=== PATIENT | male | born 1955 | race Caucasian/White ===

== ENCOUNTER 2017-01-07 15:06 | Inpatient (IN) | payer MEDICARE, BC, OTHER ==
[2017-01-07] MEDS ORDERED: SODIUM CHLORIDE 0.9% 500 ML IV STA (15:46)
[2017-01-07] MEDS ORDERED: SODIUM CHLORIDE 0.9% 1,000 ML IV STA (15:46)
[2017-01-07] MEDS ORDERED: ONDANSETRON 4 MG/2 ML VIAL IVP STA (15:46)
[2017-01-07 16:20] LABS: Basophils # (A) 0.1 k/uL (0-0.2); Basophils % (A) 1 %; Eosinophils # (A) 0.2 k/uL (0-0.7); Eosinophils % (A) 2 %; HCT 38.8 % (39.0-53.0); HDW 2.54; HGB 12.7 gm/dL (13.0-17.5); Luc # (Auto) 0.15; Luc % (Auto) 2; Lymphocytes # (A) 1.4 k/uL (1.0-4.8); Lymphocytes % (A) 18 %; MCHC 32.8 g/dL (31.0-37.0); MCV 103.5 fL (80.0-100.0); Macrocytosis Slight; Mean Platelet Volume 8.5; Monocytes # (A) 0.6 k/uL (0-1.0); Monocytes % (A) 8 %; Neutrophils # (A) 5.3 k/uL (1.3-7.7); Neutrophils % (A) 70 %; RBC 3.75 m/uL (4.30-5.90); WBC 7.7 k/uL (3.8-10.6); WBC (Perox) 8.25
[2017-01-07 16:30] LABS: INR 1.1 (<1.2); Prothrombin Time 11.1 sec (9.0-12.0)
--- NOTE | 2017-01-07 16:30 | XR ---
EXAMINATION TYPE: XR KUB DATE OF EXAM: 01/07/2017 4:24 PM CLINICAL HISTORY: Abdominal pain. TECHNIQUE: Two Upright KUB images of the abdomen are obtained. COMPARISON: None. FINDINGS: Scattered gas is seen in non-distended small bowel loops. Gas and fecal material is seen in non-distended colon and rectum. There is no visceromegaly, pneumoperitoneum, or abnormal calcificati on appreciated. The lung bases are clear and the osseous structures are intact. There is partial visu alization of sternal wires and mediastinal clips. IMPRESSION: Overall nonobstructive bowel gas pattern.
[2017-01-07 16:32] LABS: ALT 64 U/L (21-72); AST 53 U/L (17-59); Alkaline Phosphatase 92 U/L (38-126); Anion Gap 12 mmol/L; Blood Urea Nitrogen 16 mg/dL (9-20); Calcium 9.4 mg/dL (8.4-10.2); Carbon Dioxide 26 mmol/L (22-30); Chloride 100 mmol/L (98-107); Glucose 99 mg/dL (74-99); Non-African American GFR(MDRD) >60 (>60 ml/min/1.73 sqM); Potassium 3.8 mmol/L (3.5-5.1); Sodium 138 mmol/L (137-145); Total Protein 7.5 g/dL (6.3-8.2)
--- NOTE | 2017-01-07 16:33 | ED ---
General Adult HPI - General Chief complaint: Recheck/Abnormal Lab/Rx Stated complaint: Dehydration Time Seen by Provider: 01/07/17 15:40 Source: patient, EMS, RN notes reviewed Mode of arrival: ambulatory Limitations: no limitations - History of Present Illness Initial comments: 61-year-old male presents with chief complaint nausea and vomiting. Patient states he has history of esophageal strictures, is scheduled for EGD with dilatation tomorrow. Patient was seen by his surgeon earlier today. Recommended evaluation in the ER for admission. Patient states he's been unable to keep anything down for greater than 1 week. He vomits with both food and water. He is also had episodes of vomiting in between. Denies significant abdominal pain. Denies fever chills. Denies chest pain or shortness of breath. Patient does have past medical history of multiple procedures on his esophagus in the past. He is HIV positive. - Related Data Home Medications Medication Instructions Recorded Confirmed Aspirin EC [Ecotrin Low Dose] 81 mg PO DAILY 01/07/17 01/07/17 Atenolol [Tenormin] 25 mg PO DAILY 01/07/17 01/07/17 Atorvastatin Calcium [Lipitor] 10 mg PO DAILY 01/07/17 01/07/17 Emtricitab/Rilpiviri/Tenof Ala 1 tab PO DAILY 01/07/17 01/07/17 [Odefsey Tablet] Ibuprofen [Motrin] 800 mg PO Q8H PRN 01/07/17 01/07/17 QUEtiapine [SEROquel] 200 mg PO HS 01/07/17 01/07/17 Ranitidine HCl 300 mg PO DAILY 01/07/17 01/07/17 Allergies Allergy/AdvReac Type Severity Reaction Status Date / Time No Known Allergies Allergy Verified 01/07/17 16:29 Review of Systems ROS Statement: Those systems with pertinent positive or pertinent negative responses have been documented in the HPI. ROS Other: All systems not noted in ROS Statement are negative. Past Medical History Past Medical History: Hypertension Additional Past Medical History / Comment(s): HIV positive History of Any Multi-Drug Resistant Organisms: None Reported Past Surgical History: Cardiac Valve Replacement, Hernia Repair Additional Past Surgical History / Comment(s): 6 esophageal dilations Past Psychological History: Bipolar Smoking Status: Never smoker Past Alcohol Use History: None Reported Past Drug Use History: None Reported General Exam Limitations: no limitations General appearance: alert, in no apparent distress, cachectic Head exam: Present: atraumatic, normocephalic Eye exam: Present: normal appearance, PERRL ENT exam: Present: mucous membranes dry Neck exam: Present: normal inspection. Absent: tenderness, meningismus Respiratory exam: Present: normal lung sounds bilaterally. Absent: respiratory distress Cardiovascular Exam: Present: regular rate, normal rhythm GI/Abdominal exam: Present: soft. Absent: distended, tenderness, guarding, rebound Extremities exam: Present: normal inspection, normal capillary refill. Absent: pedal edema Neurological exam: Present: alert, oriented X3 Psychiatric exam: Present: normal affect, normal mood Skin exam: Present: warm, dry, intact. Absent: cyanosis, diaphoretic Course Vital Signs 01/07/17 15:35 Temperature 97 F L Pulse Rate 71 Respiratory 18 Rate Blood Pressure 106/68 O2 Sat by Pulse 100 Oximetry Medical Decision Making - Medical Decision Making 61-year-old male presents with nausea vomiting, dehydration. Case was discussed with Dr. Escobar, he would like patient admitted for IV hydration. Infectious disease will be placed on consult for history of HIV. Abdominal x-ray shows no obstruction, no intraperitoneal free air. Laboratory studies are unremarkable including normal electrolytes. Urinalysis is pending Diagnosis: Dehydration, nausea vomiting, esophageal stricture. - Lab Data Result diagrams: 01/07/17 16:05 01/07/17 16:05 Lab Results 01/07/17 01/07/17 01/07/17 Range/Units 16:05 16:05 16:05 WBC 7.7 (3.8-10.6) k/uL RBC 3.75 L (4.30-5.90) m/uL Hgb 12.7 L (13.0-17.5) gm/dL Hct 38.8 L (39.0-53.0) % MCV 103.5 H (80.0-100.0) fL MCH 34.0 (25.0-35.0) pg MCHC 32.8 (31.0-37.0) g/dL RDW 14.0 (11.5-15.5) % Plt Count 193 (150-450) k/uL Neutrophils % 70 % Lymphocytes % 18 % Monocytes % 8 % Eosinophils % 2 % Basophils % 1 % Neutrophils # 5.3 (1.3-7.7) k/uL Lymphocytes # 1.4 (1.0-4.8) k/uL Monocytes # 0.6 (0-1.0) k/uL Eosinophils # 0.2 (0-0.7) k/uL Basophils # 0.1 (0-0.2) k/uL Macrocytosis Slight PT 11.1 (9.0-12.0) sec INR 1.1 (<1.2) APTT 24.0 (22.0-30.0) sec Sodium 138 (137-145) mmol/L Potassium 3.8 (3.5-5.1) mmol/L Chloride 100 (98-107) mmol/L Carbon Dioxide 26 (22-30) mmol/L Anion Gap 12 mmol/L BUN 16 (9-20) mg/dL Creatinine 1.05 (0.66-1.25) mg/dL Est GFR (MDRD) Af Amer >60 (>60 ml/min/1.73 sqM) Est GFR (MDRD) Non-Af >60 (>60 ml/min/1.73 sqM) Glucose 99 (74-99) mg/dL Calcium 9.4 (8.4-10.2) mg/dL Total Bilirubin 1.0 (0.2-1.3) mg/dL AST 53 (17-59) U/L ALT 64 (21-72) U/L Alkaline Phosphatase 92 (38-126) U/L Total Protein 7.5 (6.3-8.2) g/dL Albumin 4.6 (3.5-5.0) g/dL Lipase 70 (23-300) U/L Disposition Clinical Impression: Nausea & vomiting, Dehydration, Esophageal stricture Disposition: ADMITTED IP TO THIS [facility] Condition: Stable Referrals: Nonstaff,Physician [Primary Care Provider] - 1-2 days Decision to Admit Reason: Admit from EC Decision Date: 01/07/17 Decision Time: 16:42
[2017-01-07] MEDS ORDERED: ONDANSETRON 4 MG/2 ML VIAL IVP PRN (16:48)
[2017-01-07] MEDS ORDERED: NALOXONE 0.4 MG/ML 1 ML VIAL IV PRN (16:48)
--- NOTE | 2017-01-07 21:10 | HP ---
HISTORY AND PHYSICAL CHIEF COMPLAINTS: Nausea and vomiting. HISTORY OF PRESENT ILLNESS: This 61-year-old gentleman with a past medical history of multiple medical problems, including HIV, hypertension, history of cardiac valve replacement, history of esophageal strictures with 6 dilatations, being followed by a primary physician in the [place] area, was supposed to have dilatation tomorrow by Dr. Escobar; however, the patient is having incessant vomiting, unable to keep anything down. The patient became dehydrated; because of that, patient came to [facility] and was admitted for further evaluation and treatment. There is no history of fever, rigor or chills. No history of headache, loss of consciousness, seizures at this time. PAST MEDICAL HISTORY: 1. History of hypertension. 2. HIV. 3. History of cardiac valve replacement. 4. History of hernia surgery. 5. Esophageal dilatation. MEDICATIONS: 1. Ranitidine 300 mg p.o. daily. 2. Seroquel 200 mg at bedtime. 3. Motrin 800 mg q.8 p.r.n. 4. Odefsey 1 tablet p.o. daily, which the patient is not taking on a regular basis because of difficulty swallowing. 5. Lipitor 10 mg daily. 6. Tenormin 25 mg daily. 7. Ecotrin 81 mg daily. ALLERGIES: NONE. FAMILY HISTORY: No history of any heart disease or strokes in the family. SOCIAL HISTORY: No history of smoking. No history of alcohol intake. REVIEW OF SYSTEMS: ENT: No diminished hearing. No diminished vision. CARDIOVASCULAR SYSTEM: No angina, palpitations. RESPIRATORY SYSTEM: No cough, hemoptysis. GI: As mentioned earlier. : No dysuria or retention. NERVOUS SYSTEM: No numbness, weakness. ALLERGY/IMMUNOLOGY: No asthma, hayfever. MUSCULOSKELETAL: As mentioned earlier. HEMATOLOGY/ONCOLOGY: No history of anemia. ENDOCRINE: No history of diabetes, hypothyroidism. CONSTITUTIONAL: As mentioned earlier. DERMATOLOGY: Negative. RHEUMATOLOGY: Negative. PSYCHIATRY: As mentioned earlier. PHYSICAL EXAMINATION: Patient is alert, oriented x3. Pulse 77, blood pressure 139/66, respiration 18, temperature 98.1, pulse ox 98% on room air. HEENT: Conjunctivae normal. Oral mucosa moist. NECK: No jugular venous distention. No carotid bruit. No lymph node enlargement. CARDIOVASCULAR SYSTEM: S1, S2 muffled. RESPIRATORY SYSTEM: Breath sounds diminished at the bases. No rhonchi. No crackles. ABDOMEN: Soft, nontender. No mass palpable. No guarding. LEGS: No edema. No swelling. NERVOUS SYSTEM: Higher functions as mentioned earlier. Moves all 4 limbs. No focal motor or sensory deficit. LYMPHATICS: No lymph node palpable in neck, axillae or groin. SKIN: No ulcer, rash, bleeding. JOINTS: No active deformity. LABS: WBC 7.6, hemoglobin 12.7. BMP noted. ASSESSMENT: 1. Difficulty in swallowing, dysphagia as well as dehydration. 2. Esophageal stricture. 3. History of esophageal strictures and multiple dilatations. 4. Hypertension. 5. History of HIV positive. 6. History of cardiac valve replacement. 7. Hernia repair. 8. Bipolar. RECOMMENDATIONS AND DISCUSSION: In this 61-year-old gentleman who presented with multiple complex medical issues, we will monitor the patient closely, continue the current medications, continue symptomatic treatment. Otherwise, at this time I recommend IV fluids with potassium supplementation. Consult Dr. Méndez and Dr. Escobar. Otherwise, home medication may continue once the patient is p.o. See orders for further details. Oral medications will be initiated once the patient is able to take p.o. after the dilatation. Prognosis guarded. MMODL / IJN: [id number] /
[2017-01-07] MEDS: QUEtiapine 200 MG TAB PO SCH (21:46)
[2017-01-07] MEDS: D5-0.45% NACL WITH KCL 20MEQ/L 1,000 ML IV SCH (21:47)
[2017-01-07 22:10] LABS: Appearance,Urine Clear (Clear); Bilirubin,Urine Negative (Negative); Glucose,Urine (UA) Negative (Negative); Ketones,Urine 1+ (Negative); Leukocyte Esterase,Urine Negative (Negative); Nitrite,Urine Negative (Negative); PH, Urine 7.5 (5.0-8.0); Protein,Urine Trace (Negative); UA Billing (MACRO vs. MICRO) CHEM; Urobilinogen,Urine <2.0 mg/dL (<2.0)
[2017-01-08] MEDS: D5-0.45% NACL WITH KCL 20MEQ/L 1,000 ML IV SCH ×2 (08:13→18:04)
[2017-01-08] MEDS: [UNRECOGNIZED DRUG - OTHER] PO SCH (08:15)
[2017-01-08] MEDS ORDERED: FAMOTIDINE 20 MG TAB PO SCH (09:00)
[2017-01-08] MEDS: PANTOPRAZOLE 40 MG/10 ML VIAL IV SCH (09:35)
[2017-01-08] MEDS: ATENOLOL 25 MG TAB PO SCH (09:37)
[2017-01-08] MEDS: ATORVASTATIN 10 MG TAB PO SCH (09:37)
[2017-01-08] MEDS: ASPIRIN 81 MG PO SCH (09:37)
[2017-01-08 09:39] VITALS: BMI 19.8
--- NOTE | 2017-01-08 09:42 | P.CONS ---
History of Present Illness - Reason for Consult Consult date: 01/08/17 HIV - History of Present Illness This is a 61-year-old male who has been residing in [place] but recently moved in with his mother in [place]. He is currently established with Dr. Lozoya for HIV treatment diagnosed in 1985 and is on Odefsey. His last CD4 count was 256 approximately 5-6 weeks ago. He gives history of having ongoing problems with esophageal strictures and has undergone multiple procedures for dilation and most recently was done 6 months ago. He states that lasted for about 1 month and then he started having symptoms again. He has lost 24 pounds in the past 6 months. He has had increased stress with recent aortic valve replacement, his partner recently and due to the ongoing esophageal stricture issues and states his CD count has been gradually decreasing over the past 6 months and he has had increased feelings of depression with history of bipolar disorder. He does have a counselor in [place] but no one established in this area. He is also on Seroquel at 200 mg at bedtime and before meals and he feels the dose may need to be increased. He declines need to see a psychiatrist during this hospitalization. He does have a history of heavy drug use but quit in 2011. Patient states he has had nausea and vomiting with food and water and unable to keep anything down for most of the week. He came into [facility] emergency center for evaluation. He was admitted to the hospital for dehydration and a consult placed with Dr. Escobar for EGD and esophageal dilation scheduled for today. Patient does not have Odefsey with him and no one is available to bring it into the hospital. He also gives history of having chronic wounds to his feet and follows with a outboard system operator in [place]. He has had a wound on his left second toe and the plantar surface under the fifth metatarsal that have healed. He currently has a wound to the right great toe. Patient is looking to be established for HIV care in the [facility]. Review of Systems All systems: negative Constitutional: Reports anorexia, Reports malaise, Reports poor appetite, Reports weakness, Reports weight loss, Denies chills, Denies fever Eyes: denies blurred vision, denies pain Ears, nose, mouth and throat: Denies headache, Denies sore throat Cardiovascular: Denies chest pain, Denies shortness of breath Respiratory: Denies cough, Denies cough with sputum, Denies dyspnea, Denies excessive sputum, Denies hemoptysis, Denies home oxygen Gastrointestinal: Reports diarrhea (3 episodes of diarrhea last evening.), Reports nausea, Reports vomiting, Denies abdominal pain Musculoskeletal: Denies myalgias Integumentary: Reports wounds, Denies pruritus, Denies rash Neurological: Denies numbness, Denies weakness Psychiatric: Denies anxiety, Denies depression Endocrine: Denies fatigue, Denies weight change Past Medical History Past Medical History: GERD/Reflux, Hypertension Additional Past Medical History / Comment(s): HIV positive, kaposi's sarcoma, arthritis in hands, cardiac murmur, esophageal strictures, "tardive dyskinesia, past broken rt collar bone. History of Any Multi-Drug Resistant Organisms: None Reported Past Surgical History: Cardiac Valve Replacement, Hernia Repair Additional Past Surgical History / Comment(s): 6 esophageal dilations, aortic valve replacment, hiatal hernia repair Past Anesthesia/Blood Transfusion Reactions: No Reported Reaction Smoking Status: Never smoker Additional Past Alcohol Use History / Comment(s): Patient has history of drug abuse with cocaine, crack, acid, speak, Quaaludes, marijuana and stopped in 2011. He denies any IV drug use. 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 He currently resides with his mother. - Past Family History Mother Family Medical History: No Reported History Father Family Medical History: Myocardial Infarction ([place]) Additional Family Medical History / Comment(s): parkinsons Medications and Allergies Home Medications Medication Instructions Recorded Confirmed Type Aspirin EC [Ecotrin Low Dose] 81 mg PO DAILY 01/07/17 01/07/17 History Atenolol [Tenormin] 25 mg PO DAILY 01/07/17 01/07/17 History Atorvastatin Calcium [Lipitor] 10 mg PO DAILY 01/07/17 01/07/17 History Emtricitab/Rilpiviri/Tenof Ala 1 tab PO DAILY 01/07/17 01/07/17 History [Odefsey Tablet] Ibuprofen [Motrin] 800 mg PO Q8H PRN 01/07/17 01/07/17 History QUEtiapine [SEROquel] 200 mg PO HS 01/07/17 01/07/17 History Ranitidine HCl 300 mg PO DAILY 01/07/17 01/07/17 History Allergies Allergy/AdvReac Type Severity Reaction Status Date / Time No Known Allergies Allergy Verified 01/07/17 16:29 Physical Exam Vitals: Vital Signs Temp Pulse Pulse Resp BP BP Pulse Ox 01/08/17 07:00 98.9 F 77 16 93/54 95 01/08/17 00:00 65 16 01/07/17 23:00 97.0 F L 65 16 121/58 98 01/07/17 17:53 98.1 F 77 18 113/66 98 01/07/17 17:19 97.9 F 01/07/17 17:05 71 18 127/65 98 01/07/17 15:35 97 F L 71 18 106/68 100 Intake and Output 01/07/17 01/08/17 01/08/17 22:59 06:59 14:59 Intake Total 590 800 Output Total 200 Balance 590 600 Intake: Intake, IV Titration 800 Amount Sodium Chloride 0.9% 1, 800 000 ml @ 100 mls/hr IV . Q10H STA Rx#:[id number] Oral 590 Output: Urine 200 Other: Voiding Method Toilet Toilet # Voids 2 1 Weight 62.596 kg Gen: This is a thin 61-year-old male. HEENT: Head is atraumatic, normocephalic. Pupils equal, round. Sclerae is anicteric. NECK: Supple. No JVD. No lymphadenopathy. No thyromegaly. LUNGS: Clear to auscultation. No wheezes or rhonchi. No intercostal retractions. HEART: Regular rate and rhythm. No murmur. ABDOMEN: Soft. Bowel sounds are present. No masses. No tenderness. EXTREMITIES: No pedal edema. No calf tenderness. Dorsalis pedis +2 bilaterally. Small wound to the distal right great toe with surrounding erythema. NEUROLOGICAL: Patient is awake, alert and oriented x3. Cranial nerves 2 through 12 are grossly intact. Results Results: Laboratory Results WBC 7.7 k/uL (3.8-10.6) 01/07/17 16:05 RBC 3.75 m/uL (4.30-5.90) L 01/07/17 16:05 Hgb 12.7 gm/dL (13.0-17.5) L 01/07/17 16:05 Hct 38.8 % (39.0-53.0) L 01/07/17 16:05 MCV 103.5 fL (80.0-100.0) H 01/07/17 16:05 MCH 34.0 pg (25.0-35.0) 01/07/17 16:05 MCHC 32.8 g/dL (31.0-37.0) 01/07/17 16:05 RDW 14.0 % (11.5-15.5) 01/07/17 16:05 Plt Count 193 k/uL (150-450) 01/07/17 16:05 Neutrophils % 70 % 01/07/17 16:05 Lymphocytes % 18 % 01/07/17 16:05 Monocytes % 8 % 01/07/17 16:05 Eosinophils % 2 % 01/07/17 16:05 Basophils % 1 % 01/07/17 16:05 Neutrophils # 5.3 k/uL (1.3-7.7) 01/07/17 16:05 Lymphocytes # 1.4 k/uL (1.0-4.8) 01/07/17 16:05 Monocytes # 0.6 k/uL (0-1.0) 01/07/17 16:05 Eosinophils # 0.2 k/uL (0-0.7) 01/07/17 16:05 Basophils # 0.1 k/uL (0-0.2) 01/07/17 16:05 Macrocytosis Slight 01/07/17 16:05 PT 11.1 sec (9.0-12.0) 01/07/17 16:05 INR 1.1 (<1.2) 01/07/17 16:05 APTT 24.0 sec (22.0-30.0) 01/07/17 16:05 Sodium 138 mmol/L (137-145) 01/07/17 16:05 Potassium 3.8 mmol/L (3.5-5.1) 01/07/17 16:05 Chloride 100 mmol/L (98-107) 01/07/17 16:05 Carbon Dioxide 26 mmol/L (22-30) 01/07/17 16:05 Anion Gap 12 mmol/L 01/07/17 16:05 BUN 16 mg/dL (9-20) 01/07/17 16:05 Creatinine 1.05 mg/dL (0.66-1.25) 01/07/17 16:05 Est GFR (MDRD) Af Amer >60 (>60 ml/min/1.73 sqM) 01/07/17 16:05 Est GFR (MDRD) Non-Af >60 (>60 ml/min/1.73 sqM) 01/07/17 16:05 Glucose 99 mg/dL (74-99) 01/07/17 16:05 Calcium 9.4 mg/dL (8.4-10.2) 01/07/17 16:05 Total Bilirubin 1.0 mg/dL (0.2-1.3) 01/07/17 16:05 AST 53 U/L (17-59) 01/07/17 16:05 ALT 64 U/L (21-72) 01/07/17 16:05 Alkaline Phosphatase 92 U/L (38-126) 01/07/17 16:05 Total Protein 7.5 g/dL (6.3-8.2) 01/07/17 16:05 Albumin 4.6 g/dL (3.5-5.0) 01/07/17 16:05 Lipase 70 U/L (23-300) 01/07/17 16:05 Urine Color Yellow 01/07/17 21:17 Urine Appearance Clear (Clear) 01/07/17 21:17 Urine pH 7.5 (5.0-8.0) 01/07/17 21:17 Ur Specific [place] 1.020 (1.001-1.035) 01/07/17 21:17 Urine Protein Trace (Negative) H 01/07/17 21:17 Urine Glucose (UA) Negative (Negative) 01/07/17 21:17 Urine Ketones 1+ (Negative) H 01/07/17 21:17 Urine Blood Negative (Negative) 01/07/17 21:17 Urine Nitrite Negative (Negative) 01/07/17 21:17 Urine Bilirubin Negative (Negative) 01/07/17 21:17 Urine Urobilinogen <2.0 mg/dL (<2.0) 01/07/17 21:17 Ur Leukocyte Esterase Negative (Negative) 01/07/17 21:17 Blood Type O Positive 01/07/17 16:05 Blood Type Recheck No 01/07/17 16:05 Antibody Screen NEGATIVE 01/07/17 16:05 Spec Expiration Date 01/10/2017 - 2305 01/07/17 16:05 CBC & Chem 7: 01/07/17 16:05 01/07/17 16:05 Labs: Abnormal Lab Results - Last 24 Hours (Table) 01/07/17 01/07/17 Range/Units 16:05 21:17 RBC 3.75 L (4.30-5.90) m/uL Hgb 12.7 L (13.0-17.5) gm/dL Hct 38.8 L (39.0-53.0) % MCV 103.5 H (80.0-100.0) fL Urine Protein Trace H (Negative) Urine Ketones 1+ H (Negative) Assessment and Plan Plan: This is a 61-year-old male who presented to the hospital with nausea and vomiting and dehydration. He is scheduled for EGD and dilation for esophageal stricture today with Dr. Escobar. Regarding HIV treatment, patient will need to continue on Odefsey. Patient is looking to be established in the [place] area for his HIV treatment. Continue supportive care. Further recommendations as patient progresses. The above dictated assessment and findings were discussed with Dr. Méndez. The impression and plan of care have been directed as dictated. Nika Odom nurse practitioner acting as scribe for Dr. Méndez.
[2017-01-08] MEDS ORDERED: PROPOFOL 10 MG/ML 20 ML VIAL IV ONE (12:02)
[2017-01-08] MEDS ORDERED: LIDOCAINE 1% INJ 10MG/ML (20 ML MDV) ONE (12:02)
[2017-01-08] MEDS ORDERED: IV FLUID CONTINUATION 600 ML IV ONE (12:07)
--- NOTE | 2017-01-08 12:07 | P.GSCN ---
History of Present Illness Consult date: 01/08/17 Reason for Consult: Dysphagia History of present illness: Patient was seen in the office yesterday with complaints of dysphasia. He has had approximately 6 separate esophageal dilations over the last year or 2. They typically do not last very long. He has a history of HIV with low counts. Etiology for the dysphagia was not told to him previously. Because of a history of a previous hernia repair with mesh at the hiatus. Performed outside of count. He was admitted yesterday because of ongoing dehydration. Dysphasia is with both liquids and solids. Review of Systems The patient denies any acute changes in vision or hearing, no chest pain or shortness of breath, no dysuria or hematuria, no headache, no runny nose, no rectal bleeding or melena Past Medical History Past Medical History: GERD/Reflux, Hypertension Additional Past Medical History / Comment(s): HIV positive, kaposi's sarcoma, arthritis in hands, cardiac murmur, esophageal strictures, "tardive dyskinesia, past broken rt collar bone. History of Any Multi-Drug Resistant Organisms: None Reported Past Surgical History: Cardiac Valve Replacement, Hernia Repair Additional Past Surgical History / Comment(s): 6 esophageal dilations, aortic valve replacment, hiatal hernia repair Past Anesthesia/Blood Transfusion Reactions: No Reported Reaction Smoking Status: Never smoker Additional Past Alcohol Use History / Comment(s): Patient has history of drug abuse with cocaine, crack, acid, speak, Quaaludes, marijuana and stopped in 2011. He denies any IV drug use. 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 He currently resides with his mother. - Past Family History Mother Family Medical History: No Reported History Father Family Medical History: Myocardial Infarction ([place]) Additional Family Medical History / Comment(s): parkinsons Medications and Allergies Home Medications Medication Instructions Recorded Confirmed Type Aspirin EC [Ecotrin Low Dose] 81 mg PO DAILY 01/07/17 01/07/17 History Atenolol [Tenormin] 25 mg PO DAILY 01/07/17 01/07/17 History Atorvastatin Calcium [Lipitor] 10 mg PO DAILY 01/07/17 01/07/17 History Emtricitab/Rilpiviri/Tenof Ala 1 tab PO DAILY 01/07/17 01/07/17 History [Odefsey Tablet] Ibuprofen [Motrin] 800 mg PO Q8H PRN 01/07/17 01/07/17 History QUEtiapine [SEROquel] 200 mg PO HS 01/07/17 01/07/17 History Ranitidine HCl 300 mg PO DAILY 01/07/17 01/07/17 History Allergies Allergy/AdvReac Type Severity Reaction Status Date / Time No Known Allergies Allergy Verified 01/07/17 16:29 Surgical - Exam Vital Signs Temp Pulse Resp BP Pulse Ox 97 F L 71 18 106/68 100 01/07/17 15:35 01/07/17 15:35 01/07/17 15:35 01/07/17 15:35 01/07/17 15:35 Physical exam: General: Well-developed, malnourished HEENT: Normocephalic, sclerae nonicteric Abdomen: Nontender, nondistended Extremities: No edema Neuro: Alert and oriented Results - Labs 01/07/17 16:05 01/07/17 16:05 Abnormal Lab Results - Last 24 Hours (Table) 01/07/17 01/07/17 Range/Units 16:05 21:17 RBC 3.75 L (4.30-5.90) m/uL Hgb 12.7 L (13.0-17.5) gm/dL Hct 38.8 L (39.0-53.0) % MCV 103.5 H (80.0-100.0) fL Urine Protein Trace H (Negative) Urine Ketones 1+ H (Negative) Diabetes panel 01/07/17 Range/Units 16:05 Sodium 138 (137-145) mmol/L Potassium 3.8 (3.5-5.1) mmol/L Chloride 100 (98-107) mmol/L Carbon Dioxide 26 (22-30) mmol/L BUN 16 (9-20) mg/dL Creatinine 1.05 (0.66-1.25) mg/dL Glucose 99 (74-99) mg/dL Calcium 9.4 (8.4-10.2) mg/dL AST 53 (17-59) U/L ALT 64 (21-72) U/L Alkaline Phosphatase 92 (38-126) U/L Total Protein 7.5 (6.3-8.2) g/dL Albumin 4.6 (3.5-5.0) g/dL Calcium panel 01/07/17 Range/Units 16:05 Calcium 9.4 (8.4-10.2) mg/dL Albumin 4.6 (3.5-5.0) g/dL Pituitary panel 01/07/17 Range/Units 16:05 Sodium 138 (137-145) mmol/L Potassium 3.8 (3.5-5.1) mmol/L Chloride 100 (98-107) mmol/L Carbon Dioxide 26 (22-30) mmol/L BUN 16 (9-20) mg/dL Creatinine 1.05 (0.66-1.25) mg/dL Glucose 99 (74-99) mg/dL Calcium 9.4 (8.4-10.2) mg/dL Adrenal panel 01/07/17 Range/Units 16:05 Sodium 138 (137-145) mmol/L Potassium 3.8 (3.5-5.1) mmol/L Chloride 100 (98-107) mmol/L Carbon Dioxide 26 (22-30) mmol/L BUN 16 (9-20) mg/dL Creatinine 1.05 (0.66-1.25) mg/dL Glucose 99 (74-99) mg/dL Calcium 9.4 (8.4-10.2) mg/dL Total Bilirubin 1.0 (0.2-1.3) mg/dL AST 53 (17-59) U/L ALT 64 (21-72) U/L Alkaline Phosphatase 92 (38-126) U/L Total Protein 7.5 (6.3-8.2) g/dL Albumin 4.6 (3.5-5.0) g/dL Assessment and Plan (1) Dysphagia Narrative/Plan: Will proceed with upper endoscopy with possible esophageal dilation. Risks of bleeding and perforation discussed. He understands and wishes to proceed. Current Visit: Yes Status: Acute Code(s): R13.10 - DYSPHAGIA, UNSPECIFIED SNOMED Code(s): 85750392
--- NOTE | 2017-01-08 12:22 | P.PCN ---
Date of Procedure: 01/08/17 Procedure(s) Performed: Preoperative Dx: Dysphagia Postoperative Dx: Erosive esophagitis, recurrent hiatal hernia, mild gastritis Procedure: EGD with Bx Anesthesia: Sedation Endoscopist: Dr. Escobar Specimens: Antrum, distal esophagus Endoscopic Procedure: The patient was on the endoscopy table in the left decubitus position. The Olympus gastroscope was inserted into the oropharynx and passed under direct visualization to the region of the third portion of the duodenum. From that point the scope was slowly withdrawn inspecting all surfaces carefully. There were no neoplastic inflammatory or polypoid lesions throughout the duodenum. The pylorus was widely patent. The stomach was carefully inspected. There was mild gastritis present. A biopsy of the antrum took place to rule out H. pylori. Retroflexion revealed a recurrent hiatal hernia. The diaphragmatic hiatus was present at 42 cm while the GE junction was present at 38 cm. The portion of stomach above the diaphragm appeared normal. The distal esophagus however revealed erosive esophagitis that extended approximately 10 cm proximal to the Z line. This was circumferential. There was some elevation of the mucosa inserted areas and biopsies were taken to rule out neoplastic changes although clinically low suspicion. There was also some exudate present which may have represented fungal esophagitis. The proximal esophagus appeared normal. The patient was then taken to the recovery room in stable condition per anesthesia guidelines. Recommendations: Begin nystatin. Continue antiacid therapy. Await biopsies
[2017-01-08] MEDS: NYSTATIN 100,000 UNIT/ML SUSP 500,000 UNIT/5 ML CUP PO SCH ×3 (14:16→21:38)
--- NOTE | 2017-01-08 17:23 | PN ---
PROGRESS NOTE DATE OF SERVICE: 01/08/2017 This 61-year-old gentleman who was admitted with difficulty in swallowing and dysphagia also had EGD today by Dr. Escobar. The patient was originally supposed to have stricture dilation but EGD showed erosive esophagitis with recurrent hiatal hernia as well as some mild gastritis. The possibility of neoplastic or candidal lesions was suspected. There is no chest pain. No palpitations. No fever. EXAM: On exam: Alert, oriented x3. Pulse 77, blood pressure 93/54, respirations 16, temperature 98.9, and pulse ox 94% on room air. HEENT: Conjunctivae normal. NECK: No jugular venous distention. CARDIOVASCULAR: S1, S2. RESPIRATORY: Breath sounds in the bases. No rhonchi, no crackles. ABDOMEN: Soft, nontender. No mass palpable. LEGS: No edema. NERVOUS SYSTEM: No focal deficits. LABS: WBC 7.7, hemoglobin 12.7. Other labs are noted. ASSESSMENT: 1. Difficulty in swallowing and dysphagia with dehydration, possibly secondary to erosive esophagitis, recurrent hiatal hernia and mild gastritis. 2. Esophageal stricture history. 3. History of esophageal strictures and multiple dilatations. 4. Hypertension. 5. HIV positive. 6. History of cardiac valve replacement. 7. Hernia repair. 8. Bipolar. RECOMMENDATIONS AND DISCUSSION: I recommend to continue current management and symptomatic treatment. Otherwise antifungal. Diflucan has had multiple reaction with anti-HIV medication. Dr. Méndez is following the patient closely. Dr. Escobar is also following the patient closely. Continue the hydration. Prognosis guarded because of above mentioned multiple medical issues. Further recommendations to follow. MMODL / IJN: [id number] /
[2017-01-08] MEDS: QUEtiapine 200 MG TAB PO SCH (20:25)
[2017-01-08] MEDS: MORPHINE SULFATE 10 MG/ML SYRINGE IV PRN (21:46)
--- NOTE | 2017-01-08 22:18 | P.CON ---
Consult Note - . Consult date: 01/08/17 Assessment/Plan:: This is a 61-year-old male who has been residing in [place] but recently moved in with his mother in [place]. He is currently established with Dr. Lozoya for HIV treatment diagnosed in 1985 and is on Odefsey. His last CD4 count was 256 approximately 5-6 weeks ago. He gives history of having ongoing problems with esophageal strictures and has undergone multiple procedures for dilation and most recently was done 6 months ago. He states that lasted for about 1 month and then he started having symptoms again. He has lost 24 pounds in the past 6 months. He has had increased stress with recent aortic valve replacement, his partner recently and due to the ongoing esophageal stricture issues and states his CD count has been gradually decreasing over the past 6 months and he has had increased feelings of depression with history of bipolar disorder. He does have a counselor in [place] but no one established in this area. He is also on Seroquel at 200 mg at bedtime and before meals and he feels the dose may need to be increased. He declines need to see a psychiatrist during this hospitalization. He does have a history of heavy drug use but quit in 2011. Patient states he has had nausea and vomiting with food and water and unable to keep anything down for most of the week. He came into [facility] emergency center for evaluation. He was admitted to the hospital for dehydration and a consult placed with Dr. Escobar for EGD and esophageal dilation scheduled for today. Patient does not have Odefsey with him and no one is available to bring it into the hospital. 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 He has had a wound on his left second toe and the plantar surface under the fifth metatarsal that have healed. He currently has a wound to the right great toe. Patient is looking to be established for HIV care in the [facility]. Please see the consult note as dictated by nurse practitioner Mrs. Nika Odom. This pleasant gentleman is has significant difficulty swallowing. Having difficulty with multiple his medications including his Odesefey. 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 For the laboratories are requested. If possible like to institute alternative therapy that does not have a non-nucleoside reverse transcriptase inhibitor, which may allow some improvement of his underlying psychological difficulties.Stribild will be started if possible. Await the results of the EGD as to possible infection or malignancy. I agree with evaluation, assessment and plan as dictated by nurse practitioner Mrs. Nika Odom.
[2017-01-09] MEDS: MICAFUNGIN 100 MG in SODIUM CHLORIDE 0.9% 100 ML IVPB SCH ×2 (05:20→21:15)
[2017-01-09] MEDS: PANTOPRAZOLE 40 MG/10 ML VIAL IV SCH (08:05)
[2017-01-09] MEDS: ATENOLOL 25 MG TAB PO SCH (08:05)
[2017-01-09] MEDS: ATORVASTATIN 10 MG TAB PO SCH (08:05)
[2017-01-09] MEDS: NYSTATIN 100,000 UNIT/ML SUSP 500,000 UNIT/5 ML CUP PO SCH ×4 (08:05→21:14)
[2017-01-09] MEDS: ASPIRIN 81 MG PO SCH (08:05)
[2017-01-09] MEDS: D5-0.45% NACL WITH KCL 20MEQ/L 1,000 ML IV SCH ×2 (08:35→21:41)
[2017-01-09] MEDS: [UNRECOGNIZED DRUG - OTHER] PO SCH (13:55)
--- NOTE | 2017-01-09 16:49 | P.PN ---
Subjective Progress Note Date: 01/09/17 Principal diagnosis: Dysphagia Patient underwent upper endoscopy yesterday. He was found to have erosive esophagitis with possible candidiasis. He is afebrile. Mild pain with swallowing. He was started on IV antifungals. Workup for degree of immune dysfunction still taking place. He is afebrile. Objective - Vital Signs Vital signs: Vital Signs Temp 98.1 F 01/09/17 14:32 Pulse 61 01/09/17 14:32 Resp 16 01/09/17 14:32 BP 108/64 01/09/17 14:32 Pulse Ox 99 01/09/17 14:32 Intake & Output 01/08/17 01/09/17 01/09/17 18:59 06:59 18:59 Intake Total 700 1925 Balance 700 1925 Weight 62.596 kg Intake: IV 700 1325 D5-0.45% NaCl with KCl 600 1325 20Meq/l 1,000 ml @ 75 mls /hr IV .[id number] ABRAHAM Rx#: [id number] Oral 600 Other: Voiding Method Toilet Toilet Toilet # Voids 1 2 2 - Exam Abdomen: Soft, nontender, nondistended - Labs CBC & Chem 7: 01/07/17 16:05 01/07/17 16:05 Assessment and Plan (1) Dysphagia Narrative/Plan: Continue nystatin and micofungin. Await biopsy results. Will follow with you. Current Visit: Yes Status: Acute Code(s): R13.10 - DYSPHAGIA, UNSPECIFIED SNOMED Code(s): 80673898
[2017-01-09] MEDS: MORPHINE SULFATE 10 MG/ML SYRINGE IV PRN ×2 (18:04→22:59)
[2017-01-09] MEDS: QUEtiapine 200 MG TAB PO SCH (21:41)
--- NOTE | 2017-01-09 22:52 | P.PN ---
Subjective Progress Note Date: 01/09/17 Principal diagnosis: difficulty swallowing This is a 61-year-old male who has been residing in [place] but recently moved in with his mother in [place]. He is currently established with Dr. Lozoya for HIV treatment diagnosed in 1985 and is on Odefsey. His last CD4 count was 256 approximately 5-6 weeks ago. He gives history of having ongoing problems with esophageal strictures and has undergone multiple procedures for dilation and most recently was done 6 months ago. He states that lasted for about 1 month and then he started having symptoms again. He has lost 24 pounds in the past 6 months. He has had increased stress with recent aortic valve replacement, his partner recently and due to the ongoing esophageal stricture issues and states his CD count has been gradually decreasing over the past 6 months and he has had increased feelings of depression with history of bipolar disorder. He does have a counselor in [place] but no one established in this area. He is also on Seroquel at 200 mg at bedtime and before meals and he feels the dose may need to be increased. He declines need to see a psychiatrist during this hospitalization. He does have a history of heavy drug use but quit in 2011. Patient states he has had nausea and vomiting with food and water and unable to keep anything down for most of the week. He came into [facility] emergency center for evaluation. He was admitted to the hospital for dehydration and a consult placed with Dr. Escobar for EGD and esophageal dilation scheduled for today. Patient does not have Odefsey with him and no one is available to bring it into the hospital. 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 He has had a wound on his left second toe and the plantar surface under the fifth metatarsal that have healed. Patient had his endoscopy performed. Multiple biopsies were obtained and results are pending. Evidence of extensive erosive esophagitis were noted and is being treated. Also likely Kenia esophagitis. Patient relates still feeling poorly. Was able to eat some food this afternoon. He felt like emesis this morning when he ate some breakfast. No hematemesis has been noted. Denying fevers or chills. Feels very weak. Objective - Vital Signs Vital signs: Vital Signs Temp 98.1 F 01/09/17 19:50 Pulse 68 01/09/17 19:50 Resp 18 01/09/17 19:50 BP 110/58 01/09/17 19:50 Pulse Ox 100 01/09/17 19:50 Intake & Output 01/09/17 01/09/17 01/10/17 06:59 18:59 06:59 Intake Total 1924 Balance 1924 Intake: IV 1325 D5-0.45% NaCl with KCl 1325 20Meq/l 1,000 ml @ 75 mls /hr IV .[id number] ABRAHAM Rx#: [id number] Oral 600 Other: Voiding Method Toilet Toilet # Voids 2 2 - Exam Gen: This is a thin 61-year-old male. HEENT: Head is atraumatic, normocephalic. Pupils equal, round. Sclerae is anicteric. no nayan thrush is noted NECK: Supple. No JVD. No lymphadenopathy. No thyromegaly. LUNGS: Clear to auscultation. No wheezes or rhonchi. No intercostal retractions. HEART: Regular rate and rhythm. No murmur. ABDOMEN: Soft. Bowel sounds are present. No masses. No tenderness. EXTREMITIES: No pedal edema. No calf tenderness. Dorsalis pedis +2 bilaterally. Small wound to the distal right great toe without surrounding erythema. NEUROLOGICAL: Patient is awake, alert and oriented x3. - Labs CBC & Chem 7: 01/07/17 16:05 01/07/17 16:05 Labs: Laboratory Results WBC 7.7 k/uL (3.8-10.6) 01/07/17 16:05 RBC 3.75 m/uL (4.30-5.90) L 01/07/17 16:05 Hgb 12.7 gm/dL (13.0-17.5) L 01/07/17 16:05 Hct 38.8 % (39.0-53.0) L 01/07/17 16:05 MCV 103.5 fL (80.0-100.0) H 01/07/17 16:05 MCH 34.0 pg (25.0-35.0) 01/07/17 16:05 MCHC 32.8 g/dL (31.0-37.0) 01/07/17 16:05 RDW 14.0 % (11.5-15.5) 01/07/17 16:05 Plt Count 193 k/uL (150-450) 01/07/17 16:05 Neutrophils % 70 % 01/07/17 16:05 Lymphocytes % 18 % 01/07/17 16:05 Monocytes % 8 % 01/07/17 16:05 Eosinophils % 2 % 01/07/17 16:05 Basophils % 1 % 01/07/17 16:05 Neutrophils # 5.3 k/uL (1.3-7.7) 01/07/17 16:05 Lymphocytes # 1.4 k/uL (1.0-4.8) 01/07/17 16:05 Monocytes # 0.6 k/uL (0-1.0) 01/07/17 16:05 Eosinophils # 0.2 k/uL (0-0.7) 01/07/17 16:05 Basophils # 0.1 k/uL (0-0.2) 01/07/17 16:05 Macrocytosis Slight 01/07/17 16:05 PT 11.1 sec (9.0-12.0) 01/07/17 16:05 INR 1.1 (<1.2) 01/07/17 16:05 APTT 24.0 sec (22.0-30.0) 01/07/17 16:05 Sodium 138 mmol/L (137-145) 01/07/17 16:05 Potassium 3.8 mmol/L (3.5-5.1) 01/07/17 16:05 Chloride 100 mmol/L (98-107) 01/07/17 16:05 Carbon Dioxide 26 mmol/L (22-30) 01/07/17 16:05 Anion Gap 12 mmol/L 01/07/17 16:05 BUN 16 mg/dL (9-20) 01/07/17 16:05 Creatinine 1.05 mg/dL (0.66-1.25) 01/07/17 16:05 Est GFR (MDRD) Af Amer >60 (>60 ml/min/1.73 sqM) 01/07/17 16:05 Est GFR (MDRD) Non-Af >60 (>60 ml/min/1.73 sqM) 01/07/17 16:05 Glucose 99 mg/dL (74-99) 01/07/17 16:05 Calcium 9.4 mg/dL (8.4-10.2) 01/07/17 16:05 Total Bilirubin 1.0 mg/dL (0.2-1.3) 01/07/17 16:05 AST 53 U/L (17-59) 01/07/17 16:05 ALT 64 U/L (21-72) 01/07/17 16:05 Alkaline Phosphatase 92 U/L (38-126) 01/07/17 16:05 Total Protein 7.5 g/dL (6.3-8.2) 01/07/17 16:05 Albumin 4.6 g/dL (3.5-5.0) 01/07/17 16:05 Lipase 70 U/L (23-300) 01/07/17 16:05 Urine Color Yellow 01/07/17 21:17 Urine Appearance Clear (Clear) 01/07/17 21:17 Urine pH 7.5 (5.0-8.0) 01/07/17 21:17 Ur Specific Poca 1.020 (1.001-1.035) 01/07/17 21:17 Urine Protein Trace (Negative) H 01/07/17 21:17 Urine Glucose (UA) Negative (Negative) 01/07/17 21:17 Urine Ketones 1+ (Negative) H 01/07/17 21:17 Urine Blood Negative (Negative) 01/07/17 21:17 Urine Nitrite Negative (Negative) 01/07/17 21:17 Urine Bilirubin Negative (Negative) 01/07/17 21:17 Urine Urobilinogen <2.0 mg/dL (<2.0) 01/07/17 21:17 Ur Leukocyte Esterase Negative (Negative) 01/07/17 21:17 Blood Type O Positive 01/07/17 16:05 Blood Type Recheck No 01/07/17 16:05 Antibody Screen NEGATIVE 01/07/17 16:05 Spec Expiration Date 01/10/2017230401/07/17 16:05 Laboratory Results WBC 7.7 k/uL (3.8-10.6) 01/07/17 16:05 RBC 3.75 m/uL (4.30-5.90) L 01/07/17 16:05 Hgb 12.7 gm/dL (13.0-17.5) L 01/07/17 16:05 Hct 38.8 % (39.0-53.0) L 01/07/17 16:05 MCV 103.5 fL (80.0-100.0) H 01/07/17 16:05 MCH 34.0 pg (25.0-35.0) 01/07/17 16:05 MCHC 32.8 g/dL (31.0-37.0) 01/07/17 16:05 RDW 14.0 % (11.5-15.5) 01/07/17 16:05 Plt Count 193 k/uL (150-450) 01/07/17 16:05 Neutrophils % 70 % 01/07/17 16:05 Lymphocytes % 18 % 01/07/17 16:05 Monocytes % 8 % 01/07/17 16:05 Eosinophils % 2 % 01/07/17 16:05 Basophils % 1 % 01/07/17 16:05 Neutrophils # 5.3 k/uL (1.3-7.7) 01/07/17 16:05 Lymphocytes # 1.4 k/uL (1.0-4.8) 01/07/17 16:05 Monocytes # 0.6 k/uL (0-1.0) 01/07/17 16:05 Eosinophils # 0.2 k/uL (0-0.7) 01/07/17 16:05 Basophils # 0.1 k/uL (0-0.2) 01/07/17 16:05 Macrocytosis Slight 01/07/17 16:05 PT 11.1 sec (9.0-12.0) 01/07/17 16:05 INR 1.1 (<1.2) 01/07/17 16:05 APTT 24.0 sec (22.0-30.0) 01/07/17 16:05 Sodium 138 mmol/L (137-145) 01/07/17 16:05 Potassium 3.8 mmol/L (3.5-5.1) 01/07/17 16:05 Chloride 100 mmol/L (98-107) 01/07/17 16:05 Carbon Dioxide 26 mmol/L (22-30) 01/07/17 16:05 Anion Gap 12 mmol/L 01/07/17 16:05 BUN 16 mg/dL (9-20) 01/07/17 16:05 Creatinine 1.05 mg/dL (0.66-1.25) 01/07/17 16:05 Est GFR (MDRD) Af Amer >60 (>60 ml/min/1.73 sqM) 01/07/17 16:05 Est GFR (MDRD) Non-Af >60 (>60 ml/min/1.73 sqM) 01/07/17 16:05 Glucose 99 mg/dL (74-99) 01/07/17 16:05 Calcium 9.4 mg/dL (8.4-10.2) 01/07/17 16:05 Total Bilirubin 1.0 mg/dL (0.2-1.3) 01/07/17 16:05 AST 53 U/L (17-59) 01/07/17 16:05 ALT 64 U/L (21-72) 01/07/17 16:05 Alkaline Phosphatase 92 U/L (38-126) 01/07/17 16:05 Total Protein 7.5 g/dL (6.3-8.2) 01/07/17 16:05 Albumin 4.6 g/dL (3.5-5.0) 01/07/17 16:05 Lipase 70 U/L (23-300) 01/07/17 16:05 Urine Color Yellow 01/07/17 21:17 Urine Appearance Clear (Clear) 01/07/17 21:17 Urine pH 7.5 (5.0-8.0) 01/07/17 21:17 Ur Specific Poca 1.020 (1.001-1.035) 01/07/17 21:17 Urine Protein Trace (Negative) H 01/07/17 21:17 Urine Glucose (UA) Negative (Negative) 01/07/17 21:17 Urine Ketones 1+ (Negative) H 01/07/17 21:17 Urine Blood Negative (Negative) 01/07/17 21:17 Urine Nitrite Negative (Negative) 01/07/17 21: Urine Bilirubin Negative (Negative) 01/07/17 21:17 Urine Urobilinogen <2.0 mg/dL (<2.0) 01/07/17 21:17 Ur Leukocyte Esterase Negative (Negative) 01/07/17 21:17 Blood Type O Positive 01/07/17 16:05 Blood Type Recheck No 01/07/17 16:05 Antibody Screen NEGATIVE 01/07/17 16:05 Spec Expiration Date 01/10/2017 7298 01/07/17 16:05 Assessment and Plan (1) Dysphagia Narrative/Plan: This pleasant gentleman is has significant difficulty swallowing. Having difficulty with multiple his medications including his Odesefey. 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 For the laboratories are requested. If possible like to institute alternative therapy that does not have a non-nucleoside reverse transcriptase inhibitor, which may allow some improvement of his underlying psychological difficulties.Stribild will be started if possible. The EGD reveal evidence of the erosive esophagitis for the last 10 cm of the esophagus as well as the distinct probable kenia esophagitis. This point in time biopsies are pending. The patient has been initiated to micafungin therapy for the esophagitis. Is feeling just slightly better today. We'll add in some protein supplements to try to improve his nutritional status. Surgery is following and we await biopsies. Current Visit: Yes Status: Acute Code(s): R13.10 - DYSPHAGIA, UNSPECIFIED SNOMED Code(s): 30865637 (2) HIV disease Current Visit: Yes Status: Acute Code(s): B20 - HUMAN IMMUNODEFICIENCY VIRUS [HIV] DISEASE SNOMED Code(s): 36484829
[2017-01-10] MEDS: ASPIRIN 81 MG PO SCH (08:39)
[2017-01-10] MEDS: PANTOPRAZOLE 40 MG/10 ML VIAL IV SCH (08:39)
[2017-01-10] MEDS: NYSTATIN 100,000 UNIT/ML SUSP 500,000 UNIT/5 ML CUP PO SCH ×4 (08:39→21:58)
[2017-01-10] MEDS: ATORVASTATIN 10 MG TAB PO SCH (08:40)
[2017-01-10] MEDS: ATENOLOL 25 MG TAB PO SCH (08:40)
[2017-01-10] MEDS: MORPHINE SULFATE 10 MG/ML SYRINGE IV PRN ×4 (08:40→22:04)
[2017-01-10] MEDS: [UNRECOGNIZED DRUG - OTHER] PO SCH (09:36)
--- NOTE | 2017-01-10 09:51 | P.PN ---
Subjective Progress Note Date: 01/10/17 Principal diagnosis: Dysphagia Patient says his pain in the chest region is improved. Tolerating softer diet. Pathology shows no evidence of malignancy. Fungal stains are pending. He remains on antifungals. He feels better than he has many weeks he states. Objective - Vital Signs Vital signs: Vital Signs Temp 96.8 F L 01/10/17 08:25 Pulse 74 01/10/17 08:25 Resp 14 01/10/17 08:25 BP 102/47 01/10/17 08:25 Pulse Ox 99 01/10/17 08:25 Intake & Output 01/09/17 01/10/17 01/10/17 18:59 06:59 18:59 Intake Total 2290 Balance 2290 Weight 62.596 kg Intake: IV 700 D5-0.45% NaCl with KCl 600 20Meq/l 1,000 ml @ 75 mls /hr IV .[id number] ABRAHAM Rx#: [id number] Micafungin 100 mg In 100 Sodium Chloride 0.9% 100 ml @ 100 mls/hr IVPB HS ABRAHAM Rx#:[id number] Oral 1590 Other: Voiding Method Toilet Toilet Toilet # Voids 2 2 - Exam Abdomen: Soft, nontender, nondistended - Labs CBC & Chem 7: 01/07/17 16:05 01/07/17 16:05 Labs: Abnormal Lab Results - Last 24 Hours (Table) 01/09/17 Range/Units 06:58 % CD4 Lucas 29 L (35-66) % Absolute CD4 Lucas 374 L (443-1471) cell/ul CD4/CD8 Ratio 0.5 L (1.0-3.7) % CD8 Suppressor 52 H (9-37) % Assessment and Plan (1) Dysphagia Narrative/Plan: Continue antiacids and antifungals. Soft diet. Current Visit: Yes Status: Acute Code(s): R13.10 - DYSPHAGIA, UNSPECIFIED SNOMED Code(s): 87231885
[2017-01-10 10:43] VITALS: RESP 16
[2017-01-10] MEDS: D5-0.45% NACL WITH KCL 20MEQ/L 1,000 ML IV SCH (11:23)
--- NOTE | 2017-01-10 18:27 | P.PN ---
Subjective Progress Note Date: 01/10/17 Principal diagnosis: difficulty swallowing This is a 61-year-old male who has been residing in [place] but recently moved in with his mother in [place]. He is currently established with Dr. Lozoya for HIV treatment diagnosed in 1985 and is on Odefsey. His last CD4 count was 256 approximately 5-6 weeks ago. He gives history of having ongoing problems with esophageal strictures and has undergone multiple procedures for dilation and most recently was done 6 months ago. He states that lasted for about 1 month and then he started having symptoms again. He has lost 24 pounds in the past 6 months. He has had increased stress with recent aortic valve replacement, his partner recently and due to the ongoing esophageal stricture issues and states his CD count has been gradually decreasing over the past 6 months and he has had increased feelings of depression with history of bipolar disorder. He does have a counselor in [place] but no one established in this area. He is also on Seroquel at 200 mg at bedtime and before meals and he feels the dose may need to be increased. He declines need to see a psychiatrist during this hospitalization. He does have a history of heavy drug use but quit in 2011. Patient states he has had nausea and vomiting with food and water and unable to keep anything down for most of the week. He came into [facility] emergency center for evaluation. He was admitted to the hospital for dehydration and a consult placed with Dr. Escobar for EGD and esophageal dilation scheduled for today. Patient does not have Odefsey with him and no one is available to bring it into the hospital. 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 He has had a wound on his left second toe and the plantar surface under the fifth metatarsal that have healed. Patient had his endoscopy performed. Multiple biopsies were obtained and results are pending. Evidence of extensive erosive esophagitis were noted and is being treated. Also likely Kenia esophagitis. Patient relates still feeling poorly. He has had some increased ability for oral intake. This has some difficulty with lunchtime meal. If the carriage without difficulty. He relates the noodles and stroganoff cause him to have some nausea and he did gag. Overall though he is much improved. Because he is feeling better he is looking forward to a more successful dinner. No hematemesis has been noted. Denying fevers or chills. Feels very weak. Surgeon has related that his biopsies of the esophagus were negative for malignancy. However we are still waiting on the final confirmation of yeast. Objective - Vital Signs Vital signs: Vital Signs Temp 97.5 F L 01/10/17 15:00 Pulse 74 01/10/17 15:44 Resp 16 01/10/17 15:44 BP 104/62 01/10/17 15:00 Pulse Ox 100 01/10/17 15:00 Intake & Output 01/09/17 01/10/17 01/10/17 18:59 06:59 18:59 Intake Total 2290 1800 Output Total 200 Balance 2290 1600 Weight 62.596 kg Intake: IV 700 900 D5-0.45% NaCl with KCl 600 900 20Meq/l 1,000 ml @ 75 mls /hr IV .[id number] [facility] Rx#: [id number] Micafungin 100 mg In 100 Sodium Chloride 0.9% 100 ml @ 100 mls/hr IVPB HS [facility] Rx#:[id number] Oral 1590 900 Output: Urine 200 Other: Voiding Method Toilet Toilet Toilet # Voids 2 2 3 - Exam Gen: This is a thin 61-year-old male. HEENT: Head is atraumatic, normocephalic. Pupils equal, round. Sclerae is anicteric. no nayan thrush is noted NECK: Supple. No JVD. No lymphadenopathy. No thyromegaly. LUNGS: Clear to auscultation. No wheezes or rhonchi. No intercostal retractions. HEART: Regular rate and rhythm. No murmur. ABDOMEN: Soft. Bowel sounds are present. No masses. Continues to have the epigastric tenderness EXTREMITIES: No pedal edema. No calf tenderness. Dorsalis pedis +2 bilaterally. Small wound to the distal right great toe without surrounding erythema. NEUROLOGICAL: Patient is awake, alert and oriented x3. - Labs CBC & Chem 7: 01/07/17 16:05 01/07/17 16:05 Labs: Abnormal Lab Results - Last 24 Hours (Table) 01/09/17 Range/Units 06:58 % CD4 [place] 29 L (35-66) % Absolute CD4 [place] 374 L (443-1471) cell/ul CD4/CD8 Ratio 0.5 L (1.0-3.7) % CD8 Suppressor 52 H (9-37) % Laboratory Results WBC 7.7 k/uL (3.8-10.6) 01/07/17 16:05 RBC 3.75 m/uL (4.30-5.90) L 01/07/17 16:05 Hgb 12.7 gm/dL (13.0-17.5) L 01/07/17 16:05 Hct 38.8 % (39.0-53.0) L 01/07/17 16:05 MCV 103.5 fL (80.0-100.0) H 01/07/17 16:05 MCH 34.0 pg (25.0-35.0) 01/07/17 16:05 MCHC 32.8 g/dL (31.0-37.0) 01/07/17 16:05 RDW 14.0 % (11.5-15.5) 01/07/17 16:05 Plt Count 193 k/uL (150-450) 01/07/17 16:05 Neutrophils % 70 % 01/07/17 16:05 Lymphocytes % 18 % 01/07/17 16:05 Monocytes % 8 % 01/07/17 16:05 Eosinophils % 2 % 01/07/17 16:05 Basophils % 1 % 01/07/17 16:05 Neutrophils # 5.3 k/uL (1.3-7.7) 01/07/17 16:05 Lymphocytes # 1.4 k/uL (1.0-4.8) 01/07/17 16:05 Monocytes # 0.6 k/uL (0-1.0) 01/07/17 16:05 Eosinophils # 0.2 k/uL (0-0.7) 01/07/17 16:05 Basophils # 0.1 k/uL (0-0.2) 01/07/17 16:05 Macrocytosis Slight 01/07/17 16:05 PT 11.1 sec (9.0-12.0) 01/07/17 16:05 INR 1.1 (<1.2) 01/07/17 16:05 APTT 24.0 sec (22.0-30.0) 01/07/17 16:05 Sodium 138 mmol/L (137-145) 01/07/17 16:05 Potassium 3.8 mmol/L (3.5-5.1) 01/07/17 16:05 Chloride 100 mmol/L (98-107) 01/07/17 16:05 Carbon Dioxide 26 mmol/L (22-30) 01/07/17 16:05 Anion Gap 12 mmol/L 01/07/17 16:05 BUN 16 mg/dL (9-20) 01/07/17 16:05 Creatinine 1.05 mg/dL (0.66-1.25) 01/07/17 16:05 Est GFR (MDRD) Af Amer >60 (>60 ml/min/1.73 sqM) 01/07/17 16:05 Est GFR (MDRD) Non-Af >60 (>60 ml/min/1.73 sqM) 01/07/17 16:05 Glucose 99 mg/dL (74-99) 01/07/17 16:05 Calcium 9.4 mg/dL (8.4-10.2) 01/07/17 16:05 Total Bilirubin 1.0 mg/dL (0.2-1.3) 01/07/17 16:05 AST 53 U/L (17-59) 01/07/17 16:05 ALT 64 U/L (21-72) 01/07/17 16:05 Alkaline Phosphatase 92 U/L (38-126) 01/07/17 16:05 Total Protein 7.5 g/dL (6.3-8.2) 01/07/17 16:05 Albumin 4.6 g/dL (3.5-5.0) 01/07/17 16:05 Lipase 70 U/L (23-300) 01/07/17 16:05 Urine Color Yellow 01/07/17 21:17 Urine Appearance Clear (Clear) 01/07/17 21:17 Urine pH 7.5 (5.0-8.0) 01/07/17 21:17 Ur Specific [place] 1.020 (1.001-1.035) 01/07/17 21:17 Urine Protein Trace (Negative) H 01/07/17 21:17 Urine Glucose (UA) Negative (Negative) 01/07/17 21:17 Urine Ketones 1+ (Negative) H 01/07/17 21:17 Urine Blood Negative (Negative) 01/07/17 21:17 Urine Nitrite Negative (Negative) 01/07/17 21:17 Urine Bilirubin Negative (Negative) 01/07/17 21:17 Urine Urobilinogen <2.0 mg/dL (<2.0) 01/07/17 21:17 Ur Leukocyte Esterase Negative (Negative) 01/07/17 21:17 T-Suppressor Cells 684 cell/ul (190-832) 01/09/17 06:58 % CD4 [place] 29 % (35-66) L 01/09/17 06:58 Absolute CD4 [place] 374 cell/ul (443-1471) L 01/09/17 06:58 CD4/CD8 Ratio 0.5 (1.0-3.7) L 01/09/17 06:58 % CD8 Suppressor 52 % (9-37) H 01/09/17 06:58 Blood Type O Positive 01/07/17 16:05 Blood Type Recheck No 01/07/17 16:05 Antibody Screen NEGATIVE 01/07/17 16:05 Spec Expiration Date 01/10/2017230401/07/17 16:05 Assessment and Plan (1) Dysphagia Narrative/Plan: This pleasant gentleman is has significant difficulty swallowing. Having difficulty with multiple his medications including his Odesefey. 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 For the laboratories are requested. If possible like to institute alternative therapy that does not have a non-nucleoside reverse transcriptase inhibitor, which may allow some improvement of his underlying psychological difficulties.Stribild will be started if possible. The EGD reveal evidence of the erosive esophagitis for the last 10 cm of the esophagus as well as the distinct probable kenia esophagitis. This point in time biopsies are pending. The patient has been initiated to micafungin therapy for the esophagitis. Is feeling just better today. Protein supplements of been added and he is tolerating them quite well. Particularly likes the compact Ensure . Surgery has seen him. No evidence of malignancy at the biopsy. Likely kenia esophagitis was noted in the final pathology is pending. He is still waiting for family member to bring his Odesefy from home. CD4 count is 374 which she relates is a bit lower than the last time about 400. For now undergoing aggressive treatment of his severe erosive esophagitis will continue. We'll increase the dose of the intravenous pantoprazole to 40 mg twice a day. Micafungin for the kenia esophagitis. With his current medications he may need to alter some doses as he is getting prepared for discharge to home will likely need to utilize fluconazole and there are some drug drug interactions especially with the seroquel. Current Visit: Yes Status: Acute Code(s): R13.10 - DYSPHAGIA, UNSPECIFIED SNOMED Code(s): 98842542 (2) HIV disease Current Visit: Yes Status: Acute Code(s): B20 - HUMAN IMMUNODEFICIENCY VIRUS [HIV] DISEASE SNOMED Code(s): 57276997
[2017-01-10] MEDS ORDERED: traMADol 50 MG TAB PO SCH (18:30)
[2017-01-10] MEDS: MICAFUNGIN 100 MG in SODIUM CHLORIDE 0.9% 100 ML IVPB SCH (21:58)
[2017-01-10] MEDS: QUEtiapine 200 MG TAB PO SCH (21:58)
[2017-01-10] MEDS: PANTOPRAZOLE 40 MG/10 ML VIAL IVP SCH (21:58)
--- NOTE | 2017-01-11 00:35 | P.PN ---
Subjective Progress Note Date: 01/09/17 Principal diagnosis: Difficulty swallowing Patient is a 60-year-old male with a known history of HIV, CD4 count greater than 300 came to the hospital with ifficultyswallowing. Patient had endoscopy for stricture dilation initially but was found to have erosive is a pharyngitis and hiatal hernia and mild gastritis. Patient is currently on antifungal and antiemetics as well. 01/09/2017 patient is still having difficulty swallowing. Fungal esophagitis with suspected. Continued on antifungals. Gen. surgery is following. No fever no chills. Patient was started on liquid diet and advance as tolerated. All other review of systems negative except the above Current medications reviewed Objective - Vital Signs Vital signs: Vital Signs Temp 98.1 F 01/09/17 19:50 Pulse 68 01/09/17 19:50 Resp 18 01/09/17 19:50 BP 110/58 01/09/17 19:50 Pulse Ox 100 01/09/17 19:50 Intake & Output 01/09/17 01/09/17 01/10/17 06:59 18:59 06:59 Intake Total 1925 Balance 1925 Intake: IV 1325 D5-0.45% NaCl with KCl 1325 20Meq/l 1,000 ml @ 75 mls /hr IV .[id number] [facility] Rx#: [id number] Oral 600 Other: Voiding Method Toilet Toilet # Voids 2 2 - Exam PHYSICAL EXAMINATION: Patient is lying in the bed comfortably, no acute distress, awake alert and oriented.. HEENT: Normocephalic. Neck is supple. Pupils reactive. Nostrils clear. Oral cavity is moist. Ears reveal no drainage. Neck reveals no JVD, carotid bruits, or thyromegaly. CHEST EXAMINATION: Trachea is central. Symmetrical expansion. Lung mejia clear to auscultation and percussion. CARDIAC: Normal S1, S2 with no gallops. No murmurs ABDOMEN: Soft. Bowel sounds normal. No organomegaly. No abdominal bruits. Extremities: reveal no edema. No clubbing or cyanosis Neurologically awake, alert, oriented x3 with well-coordinated movements. No focal deficits noted Skin: No rash or skin lesions. Psychiatric: Operative. Nonsuicidal Musculoskeletal: No joint swelling or deformity. Normal range of motion. - Labs CBC & Chem 7: 01/07/17 16:05 01/07/17 16:05 Assessment and Plan Assessment: #1 difficulty swallowing and dehydration due to erosive esophagitis, mild gastritis and hiatal hernia. #2 history of esophageal stricture with multiple dilations in the past #3 history on antiretroviral therapy CD4 count greater than 300 as per patient #4 history of Kaposi's sarcoma several years ago #5 hypertension #6 history of heart valve replacement #7 bipolar disorder Plan: Patient will be continued on micafungin and IV Protonix. ID and surgery is following this patient. Patient was started on liquid diet and advance as tolerated. Further recommendations based on the clinical course.
--- NOTE | 2017-01-11 00:36 | P.PN ---
Subjective Progress Note Date: 01/10/17 Principal diagnosis: Difficulty swallowing Patient is a 60-year-old male with a known history of HIV, CD4 count greater than 300 came to the hospital with ifficultyswallowing. Patient had endoscopy for stricture dilation initially but was found to have erosive is a pharyngitis and hiatal hernia and mild gastritis. Patient is currently on antifungal and antiemetics as well. 01/09/2017 patient is still having difficulty swallowing. Fungal esophagitis with suspected. Continued on antifungals. Gen. surgery is following. No fever no chills. Patient was started on liquid diet and advance as tolerated. 01/10/2017 Patient's dysphagia and pain much improved now. Patient was started on soft diet and advance as tolerated. Patient continues to be on Protonix IV and antifungals. No fever no chills. No acute overnight issues. No complaints of chest pain or short of breath. All other review of systems negative except the above Current medications reviewed Objective - Vital Signs Vital signs: Vital Signs Temp 97.5 F L 01/10/17 15:00 Pulse 74 01/10/17 15:44 Resp 16 01/10/17 15:44 BP 104/62 01/10/17 15:00 Pulse Ox 100 01/10/17 15:00 Intake & Output 01/10/17 01/10/17 01/11/17 06:59 18:59 05:59 Intake Total 2290 1800 225 Output Total 200 Balance 2290 1600 225 Weight 62.596 kg Intake: IV 700 900 225 D5-0.45% NaCl with KCl 600 900 225 20Meq/l 1,000 ml @ 75 mls /hr IV .[id number] [facility] Rx#: [id number] Micafungin 100 mg In 100 Sodium Chloride 0.9% 100 ml @ 100 mls/hr IVPB HS [facility] Rx#:[id number] Oral 1590 900 Output: Urine 200 Other: Voiding Method Toilet Toilet # Voids 2 3 - Exam PHYSICAL EXAMINATION: Patient is lying in the bed comfortably, no acute distress, awake alert and oriented.. HEENT: Normocephalic. Neck is supple. Pupils reactive. Nostrils clear. Oral cavity is moist. Ears reveal no drainage. Neck reveals no JVD, carotid bruits, or thyromegaly. CHEST EXAMINATION: Trachea is central. Symmetrical expansion. Lung mejia clear to auscultation and percussion. CARDIAC: Normal S1, S2 with no gallops. No murmurs ABDOMEN: Soft. Bowel sounds normal. No organomegaly. No abdominal bruits. Extremities: reveal no edema. No clubbing or cyanosis Neurologically awake, alert, oriented x3 with well-coordinated movements. No focal deficits noted Skin: No rash or skin lesions. Psychiatric: Operative. Nonsuicidal Musculoskeletal: No joint swelling or deformity. Normal range of motion. - Labs CBC & Chem 7: 01/07/17 16:05 01/07/17 16:05 Labs: Abnormal Lab Results - Last 24 Hours (Table) 01/09/17 Range/Units 06:58 % CD4 [place] 29 L (35-66) % Absolute CD4 [place] 374 L (443-1471) cell/ul CD4/CD8 Ratio 0.5 L (1.0-3.7) % CD8 Suppressor 52 H (9-37) % Assessment and Plan Assessment: #1 difficulty swallowing and dehydration due to erosive esophagitis, mild gastritis and hiatal hernia. #2 history of esophageal stricture with multiple dilations in the past #3 history on antiretroviral therapy CD4 count greater than 300 as per patient #4 history of Kaposi's sarcoma several years ago #5 hypertension #6 history of heart valve replacement #7 bipolar disorder Plan: Patient will be continued on micafungin and IV Protonix. ID and surgery is following this patient. Patient was started on liquid diet and advance as tolerated. Further recommendations based on the clinical course.
[2017-01-11] MEDS: D5-0.45% NACL WITH KCL 20MEQ/L 1,000 ML IV SCH ×2 (01:09→12:53)
[2017-01-11] MEDS: MORPHINE SULFATE 10 MG/ML SYRINGE IV PRN ×5 (01:09→23:31)
[2017-01-11] MEDS: PANTOPRAZOLE 40 MG/10 ML VIAL IVP SCH ×2 (07:57→20:16)
[2017-01-11] MEDS: ATENOLOL 25 MG TAB PO SCH (07:57)
[2017-01-11] MEDS: ATORVASTATIN 10 MG TAB PO SCH (07:57)
[2017-01-11] MEDS: ASPIRIN 81 MG PO SCH (07:57)
[2017-01-11] MEDS: NYSTATIN 100,000 UNIT/ML SUSP 500,000 UNIT/5 ML CUP PO SCH ×4 (07:57→20:16)
--- NOTE | 2017-01-11 09:28 | P.PN ---
Subjective Progress Note Date: 01/11/17 Principal diagnosis: Dysphagia Patient had episodes of vomiting last night. He complains of bone pain in the spinal region and also in the arms. Feels better today. Objective - Vital Signs Vital signs: Vital Signs Temp 98.1 F 01/11/17 07:53 Pulse 74 01/11/17 08:36 Resp 16 01/11/17 08:36 BP 101/59 01/11/17 07:53 Pulse Ox 98 01/11/17 07:53 Intake & Output 01/10/17 01/11/17 01/11/17 19:59 06:59 18:59 Intake Total 120 Output Total Balance 120 Weight 62.596 kg Intake: IV D5-0.45% NaCl with KCl 20Meq/l 1,000 ml @ 75 mls /hr IV .[id number] [facility] Rx#: [id number] Oral 120 Output: Urine Other: Voiding Method Toilet # Voids 2 - Exam Abdomen: Soft, nontender, nondistended - Labs CBC & Chem 7: 01/07/17 16:05 01/07/17 16:05 Assessment and Plan (1) Dysphagia Narrative/Plan: Continue diet. Will add Carafate to antiacids. Continue HIV medications. Current Visit: Yes Status: Acute Code(s): R13.10 - DYSPHAGIA, UNSPECIFIED SNOMED Code(s): 21841420
[2017-01-11] MEDS: traMADol 50 MG TAB PO PRN ×3 (09:33→23:31)
[2017-01-11] MEDS: [UNRECOGNIZED DRUG - OTHER] PO SCH (09:34)
[2017-01-11 12:30] LABS: Basophils % (A) 1 %; CH 35.1; CHCM 33.3; Eosinophils # (A) 0.4 k/uL (0-0.7); Eosinophils % (A) 9 %; HCT 35.4 % (39.0-53.0); HDW 2.78; HGB 11.2 gm/dL (13.0-17.5); Luc # (Auto) 0.08; Luc % (Auto) 2; Lymphocytes # (A) 1.3 k/uL (1.0-4.8); Lymphocytes % (A) 32 %; MCH 33.5 pg (25.0-35.0); MCHC 31.6 g/dL (31.0-37.0); MCV 106.1 fL (80.0-100.0); Macrocytosis Moderate; Mean Platelet Volume 8.3; Monocytes # (A) 0.3 k/uL (0-1.0); Monocytes % (A) 9 %; Neutrophils # (A) 1.9 k/uL (1.3-7.7); Neutrophils % (A) 47 %; RBC 3.33 m/uL (4.30-5.90); WBC (Perox) 4.14
[2017-01-11 12:41] LABS: Anion Gap 9 mmol/L; Blood Urea Nitrogen 13 mg/dL (9-20); Calcium 8.6 mg/dL (8.4-10.2); Carbon Dioxide 25 mmol/L (22-30); Chloride 103 mmol/L (98-107); Glucose 68 mg/dL (74-99); Non-African American GFR(MDRD) >60 (>60 ml/min/1.73 sqM); Potassium 4.4 mmol/L (3.5-5.1); Sodium 137 mmol/L (137-145)
[2017-01-11] MEDS: SUCRALFATE 1 GM TAB PO SCH (16:29)
[2017-01-11] MEDS: QUEtiapine 200 MG TAB PO SCH (20:15)
[2017-01-11] MEDS: MICAFUNGIN 100 MG in SODIUM CHLORIDE 0.9% 100 ML IVPB SCH (20:16)
[2017-01-11] MEDS: SENNOSIDES-DOCUSATE SODIUM 1 EACH TAB PO SCH (20:17)
--- NOTE | 2017-01-12 00:20 | P.PN ---
Subjective Progress Note Date: 01/11/17 Principal diagnosis: Difficulty swallowing Patient is a 60-year-old male with a known history of HIV, CD4 count greater than 300 came to the hospital with ifficultyswallowing. Patient had endoscopy for stricture dilation initially but was found to have erosive is a pharyngitis and hiatal hernia and mild gastritis. Patient is currently on antifungal and antiemetics as well. 01/09/2017 patient is still having difficulty swallowing. Fungal esophagitis with suspected. Continued on antifungals. Gen. surgery is following. No fever no chills. Patient was started on liquid diet and advance as tolerated. 01/10/2017 Patient's dysphagia and pain much improved now. Patient was started on soft diet and advance as tolerated. Patient continues to be on Protonix IV and antifungals. No fever no chills. No acute overnight issues. No complaints of chest pain or short of breath. 01/11/2017 01/11/2017 Patient is able to tolerate soft diet. Patient says that he had an episode of vomiting today. Still having difficulty swallowing. Otherwise no fever no chills. No complaints of chest pain or short of breath. Patient will be continued on Protonix and Carafate was added. All other review of systems negative except the above Current medications reviewed Objective - Vital Signs Vital signs: Vital Signs Temp 98.7 F 01/11/17 15:00 Pulse 74 01/11/17 15:08 Resp 16 01/11/17 15:08 BP 95/59 01/11/17 15:00 Pulse Ox 97 01/11/17 15:00 Intake & Output 01/11/17 01/11/17 01/12/17 06:59 18:59 06:59 Intake Total 1845 640 Output Total 200 Balance 1645 640 Weight 62.596 kg Intake: IV 825 D5-0.45% NaCl with KCl 825 20Meq/l 1,000 ml @ 75 mls /hr IV .[id number] [facility] Rx#: [id number] Oral 1020 640 Output: Urine 200 Other: Voiding Method Toilet # Voids 2 - Exam PHYSICAL EXAMINATION: Patient is lying in the bed comfortably, no acute distress, awake alert and oriented.. HEENT: Normocephalic. Neck is supple. Pupils reactive. Nostrils clear. Oral cavity is moist. Ears reveal no drainage. Neck reveals no JVD, carotid bruits, or thyromegaly. CHEST EXAMINATION: Trachea is central. Symmetrical expansion. Lung mejia clear to auscultation and percussion. CARDIAC: Normal S1, S2 with no gallops. No murmurs ABDOMEN: Soft. Bowel sounds normal. No organomegaly. No abdominal bruits. Extremities: reveal no edema. No clubbing or cyanosis Neurologically awake, alert, oriented x3 with well-coordinated movements. No focal deficits noted Skin: No rash or skin lesions. Psychiatric: Operative. Nonsuicidal Musculoskeletal: No joint swelling or deformity. Normal range of motion. - Labs CBC & Chem 7: 01/11/17 12:11 01/11/17 12:11 Labs: Abnormal Lab Results - Last 24 Hours (Table) 01/11/17 01/11/17 Range/Units 12:11 12:11 RBC 3.33 L (4.30-5.90) m/uL Hgb 11.2 L (13.0-17.5) gm/dL Hct 35.4 L (39.0-53.0) % MCV 106.1 H (80.0-100.0) fL Glucose 68 L (74-99) mg/dL Assessment and Plan Assessment: #1 difficulty swallowing and dehydration due to erosive esophagitis, mild gastritis and hiatal hernia. #2 history of esophageal stricture with multiple dilations in the past #3 history on antiretroviral therapy CD4 count greater than 300 as per patient #4 history of Kaposi's sarcoma several years ago #5 hypertension #6 history of heart valve replacement #7 bipolar disorder Plan: Patient will be continued on micafungin and IV Protonix. Carafate was added. ID and surgery is following this patient. Patient was started on liquid diet and advance as tolerated. Further recommendations based on the clinical course.
[2017-01-12] MEDS: D5-0.45% NACL WITH KCL 20MEQ/L 1,000 ML IV SCH ×2 (03:44→16:24)
[2017-01-12] MEDS: SUCRALFATE 1 GM TAB PO SCH ×2 (07:12→18:15)
[2017-01-12] MEDS: MORPHINE SULFATE 10 MG/ML SYRINGE IV PRN (07:12)
[2017-01-12] MEDS: [UNRECOGNIZED DRUG - OTHER] PO SCH (08:01)
[2017-01-12] MEDS: ATENOLOL 25 MG TAB PO SCH (08:02)
[2017-01-12] MEDS: PANTOPRAZOLE 40 MG/10 ML VIAL IVP SCH ×2 (08:02→21:03)
[2017-01-12] MEDS: ASPIRIN 81 MG PO SCH (08:02)
[2017-01-12] MEDS: ATORVASTATIN 10 MG TAB PO SCH (08:02)
[2017-01-12] MEDS: NYSTATIN 100,000 UNIT/ML SUSP 500,000 UNIT/5 ML CUP PO SCH ×4 (08:02→21:04)
--- NOTE | 2017-01-12 12:31 | P.PN ---
<MartinInna M - Last Filed: 01/12/17 12:22> Subjective Progress Note Date: 01/12/17 61-year-old male seen and examined at bedside chief complaint this morning is "constipation no bowel movement 9 days". Patient states less bone pain this morning. Additionally patient states is able to tolerate the diet continues to have difficult time swallowing pured meat Objective - Vital Signs Vital signs: Vital Signs Temp 97.7 F 01/12/17 07:00 Pulse 53 L 01/12/17 07:00 Resp 16 01/12/17 07:00 BP 114/65 01/12/17 07:00 Pulse Ox 100 01/12/17 07:00 Intake & Output 01/11/17 01/12/17 01/12/17 18:59 06:59 18:59 Intake Total 1845 2820 Output Total 200 200 Balance 1645 2620 Weight 62.596 kg 62.596 kg Intake: IV 825 1100 D5-0.45% NaCl with KCl 825 900 20Meq/l 1,000 ml @ 75 mls /hr IV .[id number] [facility] Rx#: [id number] Micafungin 100 mg In 200 Sodium Chloride 0.9% 100 ml @ 100 mls/hr IVPB HS [facility] Rx#:[id number] Oral 1020 1720 Output: Urine 200 200 Other: Voiding Method Toilet Toilet # Voids 2 1 - Exam Physical exam 61-year-old male resting in bed patient states he feels better today except he hasn't had a bowel movement 9 days causing abdominal bloating Lungs diminished at the bases otherwise adequate air movement on room air Heart S1-S2 audible regular Abdomen soft no facial grimacing with palpitation to the abdominal wall nontender bowel tones present not distended no reports of nausea vomiting Extremities no edema noted - Labs CBC & Chem 7: 01/11/17 12:11 01/11/17 12:11 Labs: Abnormal Lab Results - Last 24 Hours (Table) 01/11/17 01/11/17 Range/Units 12:11 12:11 RBC 3.33 L (4.30-5.90) m/uL Hgb 11.2 L (13.0-17.5) gm/dL Hct 35.4 L (39.0-53.0) % MCV 106.1 H (80.0-100.0) fL Glucose 68 L (74-99) mg/dL Assessment and Plan Assessment: Assessment and Plan (1) Dysphagia Narrative/Plan: Continue diet. Will add Carafate to antiacids. Continue HIV medications. Current Visit: Yes Status: Acute Code(s): R13.10 - DYSPHAGIA, UNSPECIFIED SNOMED Code(s): 08825970 #2 history of esophageal stricture with multiple dilatations #3 Constipation add MiraLAX #4 status post EGD with biopsy done on January 08 showing erosive esophagitis, recurrent hiatal hernia, mild gastritis The above impression and plan of care have been discussed and directed by signing physician. Inna Salazar nurse practitioner acting as scribe for signing physician. <Yahir Escobar - Last Filed: 01/12/17 18:14> Objective - Vital Signs Vital signs: Vital Signs Temp 97.4 F L 01/12/17 15:00 Pulse 56 L 01/12/17 15:00 Resp 16 01/12/17 15:00 BP 98/56 01/12/17 15:00 Pulse Ox 95 01/12/17 15:00 Intake & Output 01/11/17 01/12/17 01/12/17 18:59 06:59 18:59 Intake Total 1845 2820 360 Output Total 200 200 600 Balance 1645 2620 -240 Weight 62.596 kg 62.596 kg 62.596 kg Intake: IV 825 1100 D5-0.45% NaCl with KCl 825 900 20Meq/l 1,000 ml @ 75 mls /hr IV .[id number] [facility] Rx#: [id number] Micafungin 100 mg In 200 Sodium Chloride 0.9% 100 ml @ 100 mls/hr IVPB HS [facility] Rx#:[id number] Oral 1020 1720 360 Output: Urine 200 200 600 Other: Voiding Method Toilet Toilet # Voids 2 1 - Labs CBC & Chem 7: 01/11/17 12:11 01/11/17 12:11 Assessment and Plan Assessment: Patient doing well. No residual dysphagia. No vomiting. Plan is for discharge tomorrow. We'll sign off at this point. Please contact if needed. (1) Dysphagia Current Visit: Yes Status: Acute Code(s): R13.10 - DYSPHAGIA, UNSPECIFIED SNOMED Code(s): 55908389
[2017-01-12] MEDS ORDERED: LACTULOSE 20 GM/30 ML CUP PO PRN (12:33)
[2017-01-12] MEDS: POLYETHYLENE GLYCOL 3350 17 GM POWD.PACK PO SCH (13:25)
[2017-01-12 14:07] LABS: LOG HIV Copies/mL <1.60 (<1.60)
[2017-01-12] MEDS: MICAFUNGIN 100 MG in SODIUM CHLORIDE 0.9% 100 ML IVPB SCH (21:03)
[2017-01-12] MEDS: QUEtiapine 200 MG TAB PO SCH (21:04)
[2017-01-12] MEDS: traMADol 50 MG TAB PO PRN (21:04)
--- NOTE | 2017-01-12 22:32 | P.PN ---
Subjective Progress Note Date: 01/12/17 Principal diagnosis: difficulty swallowing This is a 61-year-old male who has been residing in [place] but recently moved in with his mother in [place]. He is currently established with Dr. Lozoya for HIV treatment diagnosed in 1985 and is on Odefsey. His last CD4 count was 256 approximately 5-6 weeks ago. He gives history of having ongoing problems with esophageal strictures and has undergone multiple procedures for dilation and most recently was done 6 months ago. He states that lasted for about 1 month and then he started having symptoms again. He has lost 24 pounds in the past 6 months. He has had increased stress with recent aortic valve replacement, his partner recently and due to the ongoing esophageal stricture issues and states his CD count has been gradually decreasing over the past 6 months and he has had increased feelings of depression with history of bipolar disorder. He does have a counselor in [place] but no one established in this area. He is also on Seroquel at 200 mg at bedtime and before meals and he feels the dose may need to be increased. He declines need to see a psychiatrist during this hospitalization. He does have a history of heavy drug use but quit in 2011. Patient states he has had nausea and vomiting with food and water and unable to keep anything down for most of the week. He came into [facility] emergency center for evaluation. He was admitted to the hospital for dehydration and a consult placed with Dr. Escobar for EGD and esophageal dilation scheduled for today. Patient does not have Odefsey with him and no one is available to bring it into the hospital. 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 He has had a wound on his left second toe and the plantar surface under the fifth metatarsal that have healed. Patient had his endoscopy performed. Multiple biopsies were obtained and results are pending. Evidence of extensive erosive esophagitis were noted and is being treated. Also likely Kenia esophagitis. Patient relates still feeling poorly. He has had some increased ability for oral intake. This has some difficulty with lunchtime meal. If the carriage without difficulty. He relates the noodles and stroganoff cause him to have some nausea and he did gag. Overall though he is much improved. Because he is feeling better he is looking forward to a more successful dinner. No hematemesis has been noted. Denying fevers or chills. Feels very weak. Surgeon has related that his biopsies of the esophagus were negative for malignancy. By inspection there was evidence of yeast not being noted on GMS stains. Patient is feeling considerably better today eating some solid foods without difficulties greatest difficulty or with meat products Objective - Vital Signs Vital signs: Vital Signs Temp 97.4 F L 01/12/17 15:00 Pulse 56 L 01/12/17 15:00 Resp 16 01/12/17 15:00 BP 98/56 01/12/17 15:00 Pulse Ox 95 01/12/17 15:00 Intake & Output 01/12/17 01/12/17 01/13/17 06:59 18:59 06:59 Intake Total 2820 360 Output Total 200 600 Balance 2620 -240 Weight 62.596 kg 62.596 kg Intake: IV 1100 D5-0.45% NaCl with KCl 900 20Meq/l 1,000 ml @ 75 mls /hr IV .[id number] [facility] Rx#: [id number] Micafungin 100 mg In 200 Sodium Chloride 0.9% 100 ml @ 100 mls/hr IVPB HS [facility] Rx#:[id number] Oral 1720 360 Output: Urine 200 600 Other: Voiding Method Toilet # Voids 1 - Exam Gen: This is a thin 61-year-old male. HEENT: Head is atraumatic, normocephalic. Pupils equal, round. Sclerae is anicteric. no nayan thrush is noted NECK: Supple. No JVD. No lymphadenopathy. No thyromegaly. LUNGS: Clear to auscultation. No wheezes or rhonchi. No intercostal retractions. HEART: Regular rate and rhythm. No murmur. ABDOMEN: Soft. Bowel sounds are present. No masses. Continues to have the epigastric tenderness EXTREMITIES: No pedal edema. No calf tenderness. Dorsalis pedis +2 bilaterally. Small wound to the distal right great toe without surrounding erythema. NEUROLOGICAL: Patient is awake, alert and oriented x3. - Labs CBC & Chem 7: 01/11/17 12:11 01/11/17 12:11 Labs: Laboratory Results WBC 4.0 k/uL (3.8-10.6) 01/11/17 12:11 RBC 3.33 m/uL (4.30-5.90) L 01/11/17 12:11 Hgb 11.2 gm/dL (13.0-17.5) L 01/11/17 12:11 Hct 35.4 % (39.0-53.0) L 01/11/17 12:11 MCV 106.1 fL (80.0-100.0) H 01/11/17 12:11 MCH 33.5 pg (25.0-35.0) 01/11/17 12:11 MCHC 31.6 g/dL (31.0-37.0) 01/11/17 12:11 RDW 13.0 % (11.5-15.5) 01/11/17 12:11 Plt Count 163 k/uL (150-450) 01/11/17 12:11 Neutrophils % 47 % 01/11/17 12:11 Lymphocytes % 32 % 01/11/17 12:11 Monocytes % 9 % 01/11/17 12:11 Eosinophils % 9 % 01/11/17 12:11 Basophils % 1 % 01/11/17 12:11 Neutrophils # 1.9 k/uL (1.3-7.7) 01/11/17 12:11 Lymphocytes # 1.3 k/uL (1.0-4.8) 01/11/17 12:11 Monocytes # 0.3 k/uL (0-1.0) 01/11/17 12:11 Eosinophils # 0.4 k/uL (0-0.7) 01/11/17 12:11 Basophils # 0.0 k/uL (0-0.2) 01/11/17 12:11 Macrocytosis Moderate 01/11/17 12:11 PT 11.1 sec (9.0-12.0) 01/07/17 16:05 INR 1.1 (<1.2) 01/07/17 16:05 APTT 24.0 sec (22.0-30.0) 01/07/17 16:05 Sodium 137 mmol/L (137-145) 01/11/17 12:11 Potassium 4.4 mmol/L (3.5-5.1) 01/11/17 12:11 Chloride 103 mmol/L (98-107) 01/11/17 12:11 Carbon Dioxide 25 mmol/L (22-30) 01/11/17 12:11 Anion Gap 9 mmol/L 01/11/17 12:11 BUN 13 mg/dL (9-20) 01/11/17 12:11 Creatinine 1.00 mg/dL (0.66-1.25) 01/11/17 12:11 Est GFR (MDRD) Af Amer >60 (>60 ml/min/1.73 sqM) 01/11/17 12:11 Est GFR (MDRD) Non-Af >60 (>60 ml/min/1.73 sqM) 01/11/17 12:11 Glucose 68 mg/dL (74-99) L 01/11/17 12:11 Calcium 8.6 mg/dL (8.4-10.2) 01/11/17 12:11 Total Bilirubin 1.0 mg/dL (0.2-1.3) 01/07/17 16:05 AST 53 U/L (17-59) 01/07/17 16:05 ALT 64 U/L (21-72) 01/07/17 16:05 Alkaline Phosphatase 92 U/L (38-126) 01/07/17 16:05 Total Protein 7.5 g/dL (6.3-8.2) 01/07/17 16:05 Albumin 4.6 g/dL (3.5-5.0) 01/07/17 16:05 Lipase 70 U/L (23-300) 01/07/17 16:05 Urine Color Yellow 01/07/17 21:17 Urine Appearance Clear (Clear) 01/07/17 21:17 Urine pH 7.5 (5.0-8.0) 01/07/17 21:17 Ur Specific [place] 1.020 (1.001-1.035) 01/07/17 21:17 Urine Protein Trace (Negative) H 01/07/17 21:17 Urine Glucose (UA) Negative (Negative) 01/07/17 21:17 Urine Ketones 1+ (Negative) H 01/07/17 21:17 Urine Blood Negative (Negative) 01/07/17 21:17 Urine Nitrite Negative (Negative) 01/07/17 21:17 Urine Bilirubin Negative (Negative) 01/07/17 21:17 Urine Urobilinogen <2.0 mg/dL (<2.0) 01/07/17 21:17 Ur Leukocyte Esterase Negative (Negative) 01/07/17 21:17 T-Suppressor Cells 684 cell/ul (190-832) 01/09/17 06:58 % CD4 [place] 29 % (35-66) L 01/09/17 06:58 Absolute CD4 [place] 374 cell/ul (443-1471) L 01/09/17 06:58 CD4/CD8 Ratio 0.5 (1.0-3.7) L 01/09/17 06:58 % CD8 Suppressor 52 % (9-37) H 01/09/17 06:58 HIV-1 RNA Quant <40 Copies/mL (<40) 01/09/17 06:58 HIV RNA logcopies/mL Ult <1.60 (<1.60) 01/09/17 06:58 HIV-1 RNA (PCR) Not detected (Not detected) 01/09/17 06:58 Blood Type O Positive 01/07/17 16:05 Blood Type Recheck No 01/07/17 16:05 Antibody Screen NEGATIVE 01/07/17 16:05 Spec Expiration Date 01/10/2017230401/07/17 16:05 Assessment and Plan (1) Dysphagia Narrative/Plan: This pleasant gentleman is has significant difficulty swallowing. Having difficulty with multiple his medications including his Odesefey. 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 For the laboratories are requested. If possible like to institute alternative therapy that does not have a non-nucleoside reverse transcriptase inhibitor, which may allow some improvement of his underlying psychological difficulties.Stribild will be started if possible. The EGD reveal evidence of the erosive esophagitis for the last 10 cm of the esophagus as well as the distinct probable kenia esophagitis. This point in time biopsies are pending. The patient has been initiated to micafungin therapy for the esophagitis. Is feeling just better today. Protein supplements of been added and he is tolerating them quite well. Particularly likes the compact Ensure . Surgery has seen him. No evidence of malignancy at the biopsy. Likely kenia esophagitis was noted in the final pathology is pending. He is still waiting for family member to bring his Odesefy from home. CD4 count is 374 which she relates is a bit lower than the last time about 400. For now undergoing aggressive treatment of his severe erosive esophagitis which is allowing marked improvement. The viral load is undetectable and constantly genotype could not be performed. We'll discuss alteration of his regimen in the office visit. Likely referred for discharge to home. We'll alter antifungal therapy to fluconazole. 200 mg a day for 7 days to complete treatment of kenia esophagitis. Patient understands importance of a high protein supplement to continue to improve his recovery. Current Visit: Yes Status: Acute Code(s): R13.10 - DYSPHAGIA, UNSPECIFIED SNOMED Code(s): 25273695 (2) HIV disease Current Visit: Yes Status: Acute Code(s): B20 - HUMAN IMMUNODEFICIENCY VIRUS [HIV] DISEASE SNOMED Code(s): 57673755
[2017-01-12] MEDS: SENNOSIDES-DOCUSATE SODIUM 1 EACH TAB PO SCH (23:08)
[2017-01-12 23:56] VITALS: BP 110/59
--- NOTE | 2017-01-12 23:57 | P.PN ---
Subjective Progress Note Date: 01/12/17 Principal diagnosis: Difficulty swallowing Patient is a 60-year-old male with a known history of HIV, CD4 count greater than 300 came to the hospital with ifficultyswallowing. Patient had endoscopy for stricture dilation initially but was found to have erosive is a pharyngitis and hiatal hernia and mild gastritis. Patient is currently on antifungal and antiemetics as well. 01/09/2017 patient is still having difficulty swallowing. Fungal esophagitis with suspected. Continued on antifungals. Gen. surgery is following. No fever no chills. Patient was started on liquid diet and advance as tolerated. 01/10/2017 Patient's dysphagia and pain much improved now. Patient was started on soft diet and advance as tolerated. Patient continues to be on Protonix IV and antifungals. No fever no chills. No acute overnight issues. No complaints of chest pain or short of breath. 01/11/2017 01/11/2017 Patient is able to tolerate soft diet. Patient says that he had an episode of vomiting today. Still having difficulty swallowing. Otherwise no fever no chills. No complaints of chest pain or short of breath. Patient will be continued on Protonix and Carafate was added. 01/12/2017 Patient is tolerating soft diet. Still complaining of abdominal pain but improving. No nausea vomiting today . No fever no chills. CD4 count came back to 374. Otherwise no acute overnight issues. Anticipate discharge in next 24 hours All other review of systems negative except the above Current medications reviewed Objective - Vital Signs Vital signs: Vital Signs Temp 97.4 F L 01/12/17 15:00 Pulse 56 L 01/12/17 15:00 Resp 16 01/12/17 15:00 BP 98/56 01/12/17 15:00 Pulse Ox 95 01/12/17 15:00 Intake & Output 01/12/17 01/12/17 01/13/17 06:59 18:59 06:59 Intake Total 2820 360 Output Total 200 600 Balance 2620 -240 Weight 62.596 kg 62.596 kg Intake: IV 1100 D5-0.45% NaCl with KCl 900 20Meq/l 1,000 ml @ 75 mls /hr IV .[id number] [facility] Rx#: [id number] Micafungin 100 mg In 200 Sodium Chloride 0.9% 100 ml @ 100 mls/hr IVPB HS [facility] Rx#:[id number] Oral 1720 360 Output: Urine 200 600 Other: Voiding Method Toilet # Voids 1 - Exam PHYSICAL EXAMINATION: Patient is lying in the bed comfortably, no acute distress, awake alert and oriented.. HEENT: Normocephalic. Neck is supple. Pupils reactive. Nostrils clear. Oral cavity is moist. Ears reveal no drainage. Neck reveals no JVD, carotid bruits, or thyromegaly. CHEST EXAMINATION: Trachea is central. Symmetrical expansion. Lung mejia clear to auscultation and percussion. CARDIAC: Normal S1, S2 with no gallops. No murmurs ABDOMEN: Soft. Bowel sounds normal. No organomegaly. No abdominal bruits. Extremities: reveal no edema. No clubbing or cyanosis Neurologically awake, alert, oriented x3 with well-coordinated movements. No focal deficits noted Skin: No rash or skin lesions. Psychiatric: Operative. Nonsuicidal Musculoskeletal: No joint swelling or deformity. Normal range of motion. - Labs CBC & Chem 7: 01/11/17 12:11 01/11/17 12:11 Assessment and Plan Assessment: #1 difficulty swallowing and dehydration due to erosive esophagitis, mild gastritis and hiatal hernia. #2 possible candidal esophagitis #2 history of esophageal stricture with multiple dilations in the past #3 history on antiretroviral therapy CD4 count greater than 300 as per patient #4 history of Kaposi's sarcoma several years ago #5 hypertension #6 history of heart valve replacement #7 bipolar disorder Plan: Patient will be continued on micafungin and IV Protonix. Carafate was added. ID and surgery is following this patient. Patient was started on liquid diet and advance as tolerated. Further recommendations based on the clinical course.
[2017-01-13] MEDS: D5-0.45% NACL WITH KCL 20MEQ/L 1,000 ML IV SCH (06:16)
[2017-01-13 07:43] VITALS: PULSE 74
[2017-01-13 08:01] VITALS: TEMP 97.4
[2017-01-13] MEDS: SUCRALFATE 1 GM TAB PO SCH (08:51)
[2017-01-13] MEDS: ATENOLOL 25 MG TAB PO SCH (08:51)
[2017-01-13] MEDS: ASPIRIN 81 MG PO SCH (08:51)
[2017-01-13] MEDS: NYSTATIN 100,000 UNIT/ML SUSP 500,000 UNIT/5 ML CUP PO SCH (08:52)
[2017-01-13] MEDS: [UNRECOGNIZED DRUG - OTHER] PO SCH (08:52)
[2017-01-13] MEDS: ATORVASTATIN 10 MG TAB PO SCH (08:52)
[2017-01-13] MEDS: POLYETHYLENE GLYCOL 3350 17 GM POWD.PACK PO SCH (08:53)
[2017-01-13] MEDS: PANTOPRAZOLE 40 MG/10 ML VIAL IVP SCH (08:53)
--- NOTE | 2017-01-15 00:49 | P.DS ---
Providers Date of admission: 01/07/17 16:48 Expected date of discharge: 01/13/17 Attending physician: Natalia De Souza Consults: 01/07/17 16:50 Consult Physician Routine Consulting Provider: Flo Méndez Consult Reason/Comments: HIV Do you want consulting provider notified?: Yes Consult Physician Urgent Consulting Provider: Yahir Escobar Consult Reason/Comments: Nausea vomiting, dehydration Do you want consulting provider notified?: Yes, Notify in am Primary care physician: Physician Nonstaff Hospital Course: Discharge diagnosis #1 difficulty swallowing and dehydration due to erosive esophagitis, mild gastritis and hiatal hernia. #2 possible candidal esophagitis #2 history of esophageal stricture with multiple dilations in the past #3 history on antiretroviral therapy CD4 count greater than 300 as per patient #4 history of Kaposi's sarcoma several years ago #5 hypertension #6 history of heart valve replacement #7 bipolar disorder Hospital course Patient is a 60-year-old male with a known history of HIV, CD4 count greater than 300 came to the hospital with ifficultyswallowing. Patient had endoscopy for stricture dilation initially but was found to have erosive is a pharyngitis and hiatal hernia and mild gastritis. Patient is currently on antifungal and antiemetics as well. 01/09/2017 patient is still having difficulty swallowing. Fungal esophagitis with suspected. Continued on antifungals. Gen. surgery is following. No fever no chills. Patient was started on liquid diet and advance as tolerated. 01/10/2017 Patient's dysphagia and pain much improved now. Patient was started on soft diet and advance as tolerated. Patient continues to be on Protonix IV and antifungals. No fever no chills. No acute overnight issues. No complaints of chest pain or short of breath. 01/11/2017 01/11/2017 Patient is able to tolerate soft diet. Patient says that he had an episode of vomiting today. Still having difficulty swallowing. Otherwise no fever no chills. No complaints of chest pain or short of breath. Patient will be continued on Protonix and Carafate was added. 01/12/2017 Patient is tolerating soft diet. Still complaining of abdominal pain but improving. No nausea vomiting today . No fever no chills. CD4 count came back to 374. Otherwise no acute overnight issues. Anticipate discharge in next 24 hours 01/13/2017 Patient is tolerating diet very well. Abdominal pain which improved. Patient is being discharged home today. Patient was continued on micafungin and IV Protonix. Carafate was added. ID and surgery has seen the patient. Patient underwent EGD.. Patient was started on liquid diet and advance as tolerated. Patient will be continued on Diflucan for tonics and Carafate upon discharge. Discharge physical examination was done Patient Condition at Discharge: Stable Plan - Discharge Summary Discharge Rx Participant: No New Discharge Prescriptions: New Pantoprazole Sodium [Protonix] 40 mg PO DAILY #30 tablet.dr Mccoy-Docusate Sodium [Senokot-S] 1 each PO HS PRN #30 tab PRN Reason: Constipation Sucralfate [Carafate] 1 gm PO AC-BID #30 tab Fluconazole [Diflucan] 200 mg PO DAILY #7 tab Continue QUEtiapine [SEROquel] 200 mg PO HS Emtricitab/Rilpiviri/Tenof Ala [Odefsey Tablet] 1 tab PO DAILY Atorvastatin Calcium [Lipitor] 10 mg PO DAILY Aspirin EC [Ecotrin Low Dose] 81 mg PO DAILY Atenolol [Tenormin] 25 mg PO DAILY Discontinued Ibuprofen [Motrin] 800 mg PO Q8H PRN PRN Reason: Pain Discharge Medication List Aspirin EC [Ecotrin Low Dose] 81 mg PO DAILY 01/07/17 [History] Atenolol [Tenormin] 25 mg PO DAILY 01/07/17 [History] Atorvastatin Calcium [Lipitor] 10 mg PO DAILY 01/07/17 [History] Emtricitab/Rilpiviri/Tenof Ala [Odefsey Tablet] 1 tab PO DAILY 01/07/17 [History ] QUEtiapine [SEROquel] 200 mg PO HS 01/07/17 [History] Pantoprazole Sodium [Protonix] 40 mg PO DAILY #30 tablet. 01/08/17 [Rx] Fluconazole [Diflucan] 200 mg PO DAILY #7 tab 01/12/17 [Rx] Sennosides-Docusate Sodium [Senokot-S] 1 each PO HS PRN #30 tab 01/12/17 [Rx] Sucralfate [Carafate] 1 gm PO AC-BID #30 tab 01/12/17 [Rx] Follow up Appointment(s)/Referral(s): Ayala Astudillo MD [REFERRING] - 01/15/17 1:50 pm (office cant make appt for patient ,he is not a patient of .) Flo Méndez MD [STAFF PHYSICIAN] - 02/05/17 2:30 pm Ambulatory/Diagnostic Orders: Complete Blood Count w/diff [LAB.AMB] Time Frame: 3 Days, Location: Determined By Patient Patient Instructions/Handouts: Nystatin (By mouth), Pantoprazole (By mouth), Dehydration (DC), Esophageal Stricture (DC), Acute Nausea and Vomiting (DC), Chronic Dysphagia (DC) Discharge Disposition: HOME SELF-CARE
== END 2017-01-13 11:46 | disposition home or self-care (01) | DRG 380 ==
LOC: EC 15:06 → 5MS5E 16:48
PROVIDERS: ADMIT Hospitalist; ATTEND Hospitalist
PROC: 0DB58ZX Excision of Esophagus, Via Natural or Artificial Opening Endoscopic, Diagnostic (ICD-10-PCS; principal; 2017-01-07)
PROC: 0DB78ZX Excision of Stomach, Pylorus, Via Natural or Artificial Opening Endoscopic, Diagnostic (ICD-10-PCS; 2017-01-07)
DX: K22.10 Ulcer of esophagus without bleeding (principal); B20 Human immunodeficiency virus [HIV] disease; B37.81 Candidal esophagitis; K22.2 Esophageal obstruction; I10 Essential (primary) hypertension; K44.9 Diaphragmatic hernia without obstruction or gangrene; K29.70 Gastritis, unspecified, without bleeding; E86.0 Dehydration; K59.00 Constipation, unspecified; F31.9 Bipolar disorder, unspecified; M19.042 Primary osteoarthritis, left hand; K21.0 Gastro-esophageal reflux disease with esophagitis; G24.01 Drug induced subacute dyskinesia; M19.041 Primary osteoarthritis, right hand; R13.10 Dysphagia, unspecified; F13.11 Sedative, hypnotic or anxiolytic abuse, in remission; F12.11 Cannabis abuse, in remission; F14.11 Cocaine abuse, in remission; Z79.82 Long term (current) use of aspirin; Z79.899 Other long term (current) drug therapy; Z95.2 Presence of prosthetic heart valve; Z85.89 Personal history of malignant neoplasm of other organs and systems
CPT/HCPCS: 36415; 43239; 74000; 80048; 80053; 81003; 83690; 85025; 85610; 85730; 86360; 86850; 86900; 86901; 87536; 87901; 88305; 88312; 88342; 96361; 96374; 99285

== ENCOUNTER 2017-07-01 06:51 | Day surgery (SDC) | payer MEDICARE, BC, OTHER ==
[~2017-07-01 06:51] MED LIST: LACTATED RINGERS 1,000 ML IV SCH
[2017-07-01 07:14] VITALS: TEMP 97.6
[2017-07-01] MEDS ORDERED: PROPOFOL 10 MG/ML 20 ML VIAL IV ONE (07:47)
[2017-07-01] MEDS ORDERED: LIDOCAINE 1% INJ 10MG/ML (20 ML MDV) ONE (07:47)
[2017-07-01] MEDS ORDERED: GLYCOPYRROLATE 0.2 MG/ML 2 ML VIAL ONE (07:47)
--- NOTE | 2017-07-01 08:08 | P.GSHP ---
History of Present Illness H&P Date: 07/01/17 Chief Complaint: Dysphagia Patient today for upper endoscopy. Has had increased dysphagia symptoms. Had a endoscopic ultrasound performed apparently yesterday which showed some abnormalities outside of the esophagus. Last endoscopy performed in January. No dilation was needed at that time. He had relief for approximately a month or 2 but his symptoms have now recurred. Patient is a history of HIV. He has been losing weight. Past Medical History Past Medical History: GERD/Reflux, Hyperlipidemia, Hypertension Additional Past Medical History / Comment(s): YEAST INFECTION (GI). HIV positive, kaposi's sarcoma, arthritis in hands, cardiac murmur, esophageal strictures, "tardive dyskinesia, past broken rt collar bone. History of Any Multi-Drug Resistant Organisms: None Reported Past Surgical History: Cardiac Valve Replacement, Hernia Repair Additional Past Surgical History / Comment(s): 6 esophageal dilations, aortic valve replacment, hiatal hernia repair Past Anesthesia/Blood Transfusion Reactions: No Reported Reaction Past Psychological History: Bipolar Additional Psychological History / Comment(s): pt stated feels well maintained on meds. pt lives withhis mom. Smoking Status: Never smoker Past Alcohol Use History: Heavy Additional Past Alcohol Use History / Comment(s): Patient has history of drug abuse with cocaine, crack, acid, speak, Quaaludes, marijuana and stopped in 2011. He denies any IV drug use. 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 He currently resides with his mother. Past Drug Use History: Cocaine, Marijuana Additional Drug Use History / Comment(s): pt stated i'd take anything i could get my hands on. admits past use of cocaine,crack,acid,speed,qualudes,marijuana denied any iv drug use. stopped drug use 2011 - Past Family History Mother Family Medical History: No Reported History Father Family Medical History: Myocardial Infarction ([place]) Additional Family Medical History / Comment(s): parkinsons Medications and Allergies Home Medications Medication Instructions Recorded Confirmed Type Aspirin EC [Ecotrin Low Dose] 81 mg PO QAM 01/07/17 06/26/17 History Atenolol [Tenormin] 25 mg PO DAILY 01/07/17 07/01/17 History Atorvastatin Calcium [Lipitor] 10 mg PO QAM 01/07/17 07/01/17 History QUEtiapine [SEROquel] 200 mg PO HS 01/07/17 07/01/17 History Fluconazole [Diflucan] 200 mg PO DAILY #7 tab 01/12/17 07/01/17 Rx Elviteg/Iliana/Emtric/Tenofo Dis 1 tab PO HS 06/26/17 07/01/17 History [Stribild Tablet] Allergies Allergy/AdvReac Type Severity Reaction Status Date / Time No Known Allergies Allergy Verified 06/26/17 11:27 Surgical - Exam Vital Signs Temp Pulse Resp BP Pulse Ox 97.6 F 70 14 123/77 97 07/01/17 07:13 07/01/17 07:13 07/01/17 07:13 07/01/17 07:13 07/01/17 07:13 Physical exam: General: Thin elderly male appears older than stated age HEENT: Normocephalic, sclerae nonicteric Abdomen: Nontender, nondistended Extremities: No edema Neuro: Alert and oriented Assessment and Plan (1) Dysphagia Narrative/Plan: Will proceed with repeat endoscopy with dilation today. Risks of bleeding and perforation were discussed. Current Visit: No Status: Acute Code(s): R13.10 - DYSPHAGIA, UNSPECIFIED SNOMED Code(s): 65180482 (2) Esophageal stricture Current Visit: No Status: Acute Code(s): K22.2 - ESOPHAGEAL OBSTRUCTION SNOMED Code(s): 98627690
--- NOTE | 2017-07-01 08:13 | P.PCN ---
Date of Procedure: 07/01/17 Procedure(s) Performed: Date of Procedure: 07/01/17 Procedure(s) Performed: Preoperative Dx: Dysphagia, history of esophageal stricture Postoperative Dx: Recurrent esophageal stricture/distal esophagitis/hiatal hernia Procedure: EGD with Bx and dilation of esophageal stricture Anesthesia: Sedation Endoscopist: Dr. Escobar Specimens: GE junction/stricture, antrum Endoscopic Procedure: The patient was on the endoscopy table in the left decubitus position. The Olympus gastroscope was inserted into the oropharynx and passed under direct visualization to the distal esophagus. The patient had evidence of scarring of the mucosa but he was also found to have a tight stricture in the distal esophagus. I would estimate the luminal diameter at that location to be approximately 7 mm. I was able to advance a 8-10 mm balloon through the stricture site. Insufflation gradually took place holding the balloon at 8, 9, and 10 mm for 1 minute increments. Minimal bleeding was seen during this. The 8 mm balloon actually felt relatively loose after inflating. I was then able to pass through the stricture site into the stomach and into the duodenum. No abnormalities of the duodenum were identified. The stomach was relatively normal during his well. I did take a biopsy of the antrum. Retroflexion revealed a small hiatal hernia. At the GE junction is where the stricture was located and several biopsies of the stricture site were taken. The proximal esophagus appeared normal. The patient was then taken to the recovery room in stable condition per anesthesia guidelines. Recommendations: Await biopsy results. Continue antiacid therapy. Will require follow-up EGD with dilation in 1 month. Disposition: observation
[2017-07-01 08:15] VITALS: RESP 16
[2017-07-01 08:43] VITALS: BP 120/70; PULSE 80
== END 2017-07-01 08:55 | disposition home or self-care (01) ==
LOC: ORWHC2ENDO 06:51
PROVIDERS: ATTEND Surgery
DX: K22.2 Esophageal obstruction (principal); K29.50 Unspecified chronic gastritis without bleeding; K25.7 Chronic gastric ulcer without hemorrhage or perforation; K44.9 Diaphragmatic hernia without obstruction or gangrene; K20.9 Esophagitis, unspecified; E78.5 Hyperlipidemia, unspecified; B20 Human immunodeficiency virus [HIV] disease; C46.9 Kaposi's sarcoma, unspecified; I10 Essential (primary) hypertension; Z95.2 Presence of prosthetic heart valve; Z95.1 Presence of aortocoronary bypass graft; Z79.82 Long term (current) use of aspirin; Z79.899 Other long term (current) drug therapy
CPT/HCPCS: 88305; 43239; 43249; J2001; J2704; C1726; 88312

== ENCOUNTER 2017-07-29 08:08 | Day surgery (SDC) | payer MEDICARE, BC, OTHER ==
[~2017-07-29 08:08] MED LIST changes: +LIDOCAINE 1% 20 ML VIAL (10MG/ML) FOR IV START INTRADERMA PRN
[2017-07-29 08:30] VITALS: RESP 18; TEMP 97.8
--- NOTE | 2017-07-29 08:41 | P.GSHP ---
History of Present Illness H&P Date: 07/29/17 Chief Complaint: GERD Patient was recently seen in late June. He underwent upper endoscopy with dilation. The patient had a significant stricture involving the distal esophagus. Biopsies were negative for neoplasia. No fungal organisms were identified at that time. Dilation took place between 8 and 10 mm. He had improvement in symptoms postoperatively. Past Medical History Past Medical History: GERD/Reflux, Hyperlipidemia, Hypertension Additional Past Medical History / Comment(s): YEAST INFECTION (GI). HIV positive, kaposi's sarcoma, arthritis in hands, cardiac murmur, esophageal strictures, "tardive dyskinesia, past broken rt collar bone. History of Any Multi-Drug Resistant Organisms: None Reported Past Surgical History: Cardiac Valve Replacement, Hernia Repair Additional Past Surgical History / Comment(s): 6 esophageal dilations, aortic valve replacment, hiatal hernia repair Past Anesthesia/Blood Transfusion Reactions: No Reported Reaction Past Psychological History: Bipolar Additional Psychological History / Comment(s): pt stated feels well maintained on meds. pt lives withhis mom. Smoking Status: Never smoker Past Alcohol Use History: Heavy Additional Past Alcohol Use History / Comment(s): Patient has history of drug abuse with cocaine, crack, acid, speak, Quaaludes, marijuana and stopped in 2011. He denies any IV drug use. 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 He currently resides with his mother. Past Drug Use History: Cocaine, Marijuana Additional Drug Use History / Comment(s): pt stated i'd take anything i could get my hands on. admits past use of cocaine,crack,acid,speed,qualudes,marijuana denied any iv drug use. stopped drug use 2011 - Past Family History Mother Family Medical History: No Reported History Father Family Medical History: Myocardial Infarction ([place]) Additional Family Medical History / Comment(s): parkinsons Medications and Allergies Home Medications Medication Instructions Recorded Confirmed Type Aspirin EC [Ecotrin Low Dose] 81 mg PO QAM 01/07/17 07/24/17 History Atenolol [Tenormin] 25 mg PO QAM 01/07/17 07/24/17 History Atorvastatin Calcium [Lipitor] 10 mg PO QAM 01/07/17 07/24/17 History QUEtiapine [SEROquel] 200 mg PO HS 01/07/17 07/24/17 History Elviteg/Iliana/Emtric/Tenofo Dis 1 tab PO HS 06/26/17 07/24/17 History [Stribild Tablet] Allergies Allergy/AdvReac Type Severity Reaction Status Date / Time No Known Allergies Allergy Verified 07/29/17 08:23 Surgical - Exam Vital Signs Temp Pulse Resp BP Pulse Ox 97.8 F 48 L 18 110/61 100 07/29/17 08:28 07/29/17 08:28 07/29/17 08:28 07/29/17 08:28 07/29/17 08:28 Physical exam: General: Well-developed, malnourished appearing HEENT: Normocephalic, sclerae nonicteric Abdomen: Nontender, nondistended Extremities: No edema Neuro: Alert and oriented Assessment and Plan (1) Esophageal stricture Narrative/Plan: Will proceed with upper endoscopy today with planned dilation. Risks of bleeding and perforation reviewed. He understands and wishes to proceed. Current Visit: No Status: Acute Code(s): K22.2 - ESOPHAGEAL OBSTRUCTION SNOMED Code(s): 12064814
[2017-07-29] MEDS ORDERED: PROPOFOL 10 MG/ML 20 ML VIAL IV ONE (08:49)
--- NOTE | 2017-07-29 09:05 | P.PCN ---
Date of Procedure: 07/29/17 Procedure(s) Performed: Preoperative Dx: Esophageal stricture Postoperative Dx: Esophageal stricture Procedure: EGD with dilation to 12 mm Anesthesia: Sedation Endoscopist: Dr. Escobar Specimens: None Endoscopic Procedure: The patient was on the endoscopy table in the left decubitus position. The Olympus gastroscope was inserted into the oropharynx and passed under direct visualization to the distal esophagus. The stricture was once again present at the GE junction. This did not allow passage of the scope. The 10-12 mm balloon was inserted. The balloon was inflated to 10 mm in left for 1 minute. I was unable to pass through the stricture site. Minimal bleeding was seen. The stomach and small bowel appeared unchanged from the recent endoscopy one month ago. I hiatal hernia was once again visualized. The scope was withdrawn back into the esophagus. The stricture was then dilated to 11 and then 12 mm with the balloon held at those diameters for 1 minute each time. No significant tearing was seen. The proximal esophagus appeared normal. The patient was then taken to the recovery room in stable condition per anesthesia guidelines. Recommendations: Continue soft diet. Will recommend repeat upper endoscopy in 2 months.
[2017-07-29 09:23] VITALS: BP 100/57; PULSE 52
== END 2017-07-29 09:53 | disposition home or self-care (01) ==
LOC: ORWHC2ENDO 08:08
PROVIDERS: ATTEND Surgery
DX: K22.2 Esophageal obstruction (principal); K21.9 Gastro-esophageal reflux disease without esophagitis; E78.5 Hyperlipidemia, unspecified; I10 Essential (primary) hypertension; B20 Human immunodeficiency virus [HIV] disease; C46.9 Kaposi's sarcoma, unspecified; M19.049 Primary osteoarthritis, unspecified hand; R01.1 Cardiac murmur, unspecified; F31.9 Bipolar disorder, unspecified; F19.11 Other psychoactive substance abuse, in remission; Z95.2 Presence of prosthetic heart valve; Z79.82 Long term (current) use of aspirin; Z79.899 Other long term (current) drug therapy
CPT/HCPCS: 43249; J2704; C1726

== ENCOUNTER → 2017-10-02 | Day surgery (SDC) | payer MEDICARE, BC, OTHER ==
[2017-09-30 09:32] VITALS: BMI 19.8
[~2017-10-02] MED LIST changes: +LACTATED RINGERS 1,000 ML IV ONE; +LIDOCAINE 1% INJ 10MG/ML (20 ML MDV) ONE; +MIDAZOLAM 2 MG/2 ML VIAL IV PRN; +PROPOFOL 10 MG/ML 20 ML VIAL IV ONE
[2017-10-02 07:26] VITALS: RESP 18; TEMP 97.7
--- NOTE | 2017-10-02 07:52 | P.GSHP ---
History of Present Illness H&P Date: 10/02/17 Chief Complaint: Dysphagia Patient here today for upper endoscopy with dilation. Last upper endoscopy in July. At that time he was dilated to 12 mm. Still with mild dysphagia symptoms. Particulate with solid foods. Past Medical History Past Medical History: GERD/Reflux, Hyperlipidemia, Hypertension, Osteoarthritis (OA) Additional Past Medical History / Comment(s): hx YEAST INFECTION (GI). HIV positive, kaposi's sarcoma, arthritis in hands, esophageal strictures, "tardive dyskinesia", past broken rt collar bone. hiatal hernia, non functioning gallbladder, History of Any Multi-Drug Resistant Organisms: None Reported Past Surgical History: Cardiac Valve Replacement, Hernia Repair Additional Past Surgical History / Comment(s): mult. esophageal dilations, aortic valve replacement, hiatal hernia repair Past Anesthesia/Blood Transfusion Reactions: No Reported Reaction Smoking Status: Never smoker - Past Family History Mother Family Medical History: No Reported History Father Family Medical History: Myocardial Infarction ([place]) Additional Family Medical History / Comment(s): parkinsons Medications and Allergies Home Medications Medication Instructions Recorded Confirmed Type Aspirin EC [Ecotrin Low Dose] 81 mg PO QAM 01/07/17 09/30/17 History Atenolol [Tenormin] 25 mg PO QAM 01/07/17 09/30/17 History Atorvastatin Calcium [Lipitor] 10 mg PO QAM 01/07/17 09/30/17 History QUEtiapine [SEROquel] 200 mg PO HS 01/07/17 09/30/17 History Elviteg/Iliana/Emtric/Tenofo Dis 1 tab PO HS 06/26/17 09/30/17 History [Stribild Tablet] Omeprazole [PriLOSEC] 20 mg PO AC-BID #90 cap 07/29/17 09/30/17 Rx Allergies Allergy/AdvReac Type Severity Reaction Status Date / Time No Known Allergies Allergy Verified 09/30/17 09:24 Surgical - Exam Vital Signs Temp Pulse Resp BP Pulse Ox 97.7 F 66 18 115/70 98 10/02/17 07:25 10/02/17 07:25 10/02/17 07:25 10/02/17 07:25 10/02/17 07:25 Physical exam: General: Thin white male in no distress HEENT: Normocephalic, sclerae nonicteric Abdomen: Nontender, nondistended Extremities: No edema Neuro: Alert and oriented Assessment and Plan (1) Dysphagia Narrative/Plan: Will proceed with upper endoscopy at this time. Current Visit: No Status: Acute Code(s): R13.10 - DYSPHAGIA, UNSPECIFIED SNOMED Code(s): 86857633
--- NOTE | 2017-10-02 08:02 | P.PCN ---
Date of Procedure: 10/02/17 Procedure(s) Performed: Preoperative Dx: Esophageal stricture with dysphagia Postoperative Dx: Same Procedure: EGD with dilation Anesthesia: Sedation Endoscopist: Dr. Escobar Specimens: None Endoscopic Procedure: The patient was on the endoscopy table in the left decubitus position. The Olympus gastroscope was inserted into the oropharynx and passed under direct visualization to the distal esophagus. The patient stricture is once again evident. The scope would not pass through that area. The 12-15 mm balloon was utilized. The balloon was easily inflated to 12 mm. Minimal bleeding was seen. The cystoscope was able to be advanced into the stomach and the stomach and duodenum appeared normal with the exception of some retained food within the stomach. The stricture was reexamined. This was then dilated to 13.5 mm without difficulty. The patient did have a hiatal hernia and evidence of ongoing esophagitis. The proximal esophagus appeared normal. The patient was then taken to the recovery room in stable condition per anesthesia guidelines. Recommendations: Resume diet. Short-term follow-up if symptoms persist.
[2017-10-02 08:27] VITALS: BP 100/62; PULSE 63
== END | disposition home or self-care (01) ==
LOC: ORWHC2ENDO 07:10
PROVIDERS: ATTEND Surgery
DX: K22.2 Esophageal obstruction (principal); K44.9 Diaphragmatic hernia without obstruction or gangrene; K21.0 Gastro-esophageal reflux disease with esophagitis; E78.5 Hyperlipidemia, unspecified; I10 Essential (primary) hypertension; Z21 Asymptomatic human immunodeficiency virus [HIV] infection status; G47.33 Obstructive sleep apnea (adult) (pediatric); Z95.2 Presence of prosthetic heart valve; M19.042 Primary osteoarthritis, left hand; M19.041 Primary osteoarthritis, right hand; Z82.49 Family history of ischemic heart disease and other diseases of the circulatory system; Z79.82 Long term (current) use of aspirin; Z79.899 Other long term (current) drug therapy
CPT/HCPCS: 43249; J2001; J2704; C1726

== ENCOUNTER 2018-02-03 09:06 | Day surgery (SDC) | payer MEDICARE, BC, OTHER ==
[2018-02-01 10:56] VITALS: BMI 19.3
[~2018-02-03 09:06] MED LIST changes: -LACTATED RINGERS 1,000 ML IV ONE; -LIDOCAINE 1% 20 ML VIAL (10MG/ML) FOR IV START INTRADERMA PRN; -LIDOCAINE 1% INJ 10MG/ML (20 ML MDV) ONE; -MIDAZOLAM 2 MG/2 ML VIAL IV PRN; -PROPOFOL 10 MG/ML 20 ML VIAL IV ONE
[2018-02-03 09:28] VITALS: RESP 16
[2018-02-03] MEDS ORDERED: PROPOFOL 10 MG/ML 20 ML VIAL IV ONE (09:54)
[2018-02-03] MEDS ORDERED: LIDOCAINE 1% INJ 10MG/ML (20 ML MDV) ONE (09:54)
--- NOTE | 2018-02-03 09:58 | P.GSHP ---
History of Present Illness H&P Date: 02/03/18 Chief Complaint: Dysphagia Patient here today for upper endoscopy and probable balloon dilation. Last upper endoscopy with dilation resulted in good improvement in his symptoms. Lately he has had increasing dysphagia however. Some weight loss. Past Medical History Past Medical History: Cancer, GERD/Reflux, Hyperlipidemia, Hypertension, Sleep Apnea/CPAP/BIPAP Additional Past Medical History / Comment(s): hx YEAST INFECTION (GI). HIV positive, kaposi's sarcoma, esophageal strictures, "tardive dyskinesia". hiatal hernia, non functioning gallbladder, no cpap used History of Any Multi-Drug Resistant Organisms: None Reported Past Surgical History: Cardiac Valve Replacement, Hernia Repair, Orthopedic Surgery Additional Past Surgical History / Comment(s): mult. esophageal dilations, aortic valve replacement, hiatal hernia repair, left great toe surgery Past Anesthesia/Blood Transfusion Reactions: No Reported Reaction Smoking Status: Never smoker - Past Family History Mother Family Medical History: No Reported History Father Family Medical History: Myocardial Infarction ([place]) Additional Family Medical History / Comment(s): parkinsons Medications and Allergies Home Medications Medication Instructions Recorded Confirmed Type Aspirin EC [Ecotrin Low Dose] 81 mg PO QAM 01/07/17 02/01/18 History Atenolol [Tenormin] 25 mg PO QAM 01/07/17 02/03/18 History Atorvastatin Calcium [Lipitor] 10 mg PO QAM 01/07/17 02/01/18 History QUEtiapine [SEROquel] 200 mg PO HS 01/07/17 02/01/18 History Elviteg/Iliana/Emtric/Tenofo Dis 1 tab PO HS 06/26/17 02/03/18 History [Stribild Tablet] Omeprazole [PriLOSEC] 20 mg PO BID 02/01/18 02/01/18 History Allergies Allergy/AdvReac Type Severity Reaction Status Date / Time No Known Allergies Allergy Verified 02/03/18 09:18 Surgical - Exam Vital Signs Temp Pulse Resp BP 97. F L 72 16 111/60 02/03/18 09:27 02/03/18 09:27 02/03/18 09:27 02/03/18 09:27 Physical exam: General: Well-developed, slightly malnourished HEENT: Normocephalic, sclerae nonicteric Abdomen: Nontender, nondistended Extremities: No edema Neuro: Alert and oriented Assessment and Plan (1) Esophageal stricture Narrative/Plan: Will proceed with upper endoscopy and probable balloon dilation. Current Visit: No Status: Acute Code(s): K22.2 - ESOPHAGEAL OBSTRUCTION SNOMED Code(s): 10653811
--- NOTE | 2018-02-03 10:12 | P.PCN ---
Date of Procedure: 02/03/18 Procedure(s) Performed: Preoperative Dx: Dysphagia Postoperative Dx: Recurrent esophageal stricture, hiatal hernia Procedure: EGD with dilation Anesthesia: Sedation Endoscopist: Dr. Escobar Specimens: None Endoscopic Procedure: The patient was on the endoscopy table in the left decubitus position. The Olympus gastroscope was inserted into the oropharynx and passed under direct visualization to the distal esophagus. The recurrent stricture was again visualized. I could not pass the scope through this area. There was mild inflammatory change present. This had been previously biopsied and was not rebiopsied on this occasion. The 12-15 mm balloon was utilized. The balloon was inflated first to 12 mm without difficulty. The scope was then able to be advanced through the strictured site without difficulty. The balloon was then reinflated to 13.5 mm. A small linear tear in the mucosa was seen with some oozing. I decided not to dilate any further at that point. Again the scope was able to pass through this area without difficulty. The visualized stomach and duodenum appeared otherwise normal with the exception of the previously identified hiatal hernia. The proximal esophagus appear normal. The patient was then taken to the recovery room in stable condition per anesthesia guidelines. Recommendations: Resume liquid diet. Consider short-term repeat esophageal dilation. Continue antiacids.
[2018-02-03 10:28] VITALS: BP 104/65; PULSE 58
== END 2018-02-03 11:10 | disposition home or self-care (01) ==
LOC: ORWHC2ENDO 09:06
PROVIDERS: ATTEND Surgery
DX: K22.2 Esophageal obstruction (principal); K44.9 Diaphragmatic hernia without obstruction or gangrene; K21.9 Gastro-esophageal reflux disease without esophagitis; I10 Essential (primary) hypertension; E78.5 Hyperlipidemia, unspecified; G47.33 Obstructive sleep apnea (adult) (pediatric); B20 Human immunodeficiency virus [HIV] disease; C46.9 Kaposi's sarcoma, unspecified; Z79.52 Long term (current) use of systemic steroids; Z79.82 Long term (current) use of aspirin; Z95.2 Presence of prosthetic heart valve; Z79.899 Other long term (current) drug therapy; Z99.89 Dependence on other enabling machines and devices; Z82.49 Family history of ischemic heart disease and other diseases of the circulatory system
CPT/HCPCS: 43249; J2001; J2704; C1726

== ENCOUNTER 2018-09-27 07:04 | Day surgery (SDC) | payer BC, MEDICARE, OTHER ==
[2018-09-24 11:15] VITALS: BMI 20.7
[~2018-09-27 07:04] MED LIST changes: +LIDOCAINE 1% 20 ML VIAL (10MG/ML) FOR IV START INTRADERMA PRN
[2018-09-27 07:16] VITALS: RESP 18
[2018-09-27 07:17] VITALS: TEMP 96.6
[2018-09-27] MEDS ORDERED: LACTATED RINGERS 1,000 ML IV ONE ×2 (07:23)
[2018-09-27] MEDS ORDERED: PROPOFOL 10 MG/ML 20 ML VIAL IV ONE (08:01)
[2018-09-27] MEDS ORDERED: LIDOCAINE 1% INJ 10MG/ML (20 ML MDV) ONE (08:01)
--- NOTE | 2018-09-27 08:16 | P.GSHP ---
History of Present Illness H&P Date: 09/27/18 Chief Complaint: Dysphagia Patient will monitor service. Patient underwent recent EGD with dilation to 15 mm on 08/23. Patient here today for repeat dilation. Doing well since last visit. Dysphagia improved lately. Past Medical History Past Medical History: Cancer, GERD/Reflux, Hyperlipidemia, Hypertension, Sleep Apnea/CPAP/BIPAP Additional Past Medical History / Comment(s): hx YEAST INFECTION (GI). HIV positive, kaposi's sarcoma, esophageal strictures, "tardive dyskinesia". hiatal hernia, non functioning gallbladder, no cpap used History of Any Multi-Drug Resistant Organisms: None Reported Past Surgical History: Cardiac Valve Replacement, Hernia Repair, Orthopedic Surgery Additional Past Surgical History / Comment(s): mult. esophageal dilations, aortic valve replacement, hiatal hernia repair, left great toe surgery Past Anesthesia/Blood Transfusion Reactions: No Reported Reaction Smoking Status: Never smoker - Past Family History Mother Family Medical History: No Reported History Father Family Medical History: Myocardial Infarction ([place]) Additional Family Medical History / Comment(s): parkinsons Medications and Allergies Home Medications Medication Instructions Recorded Confirmed Type Aspirin EC [Ecotrin Low Dose] 81 mg PO QAM 01/07/17 09/24/18 History Atenolol [Tenormin] 25 mg PO QAM 01/07/17 09/24/18 History Atorvastatin Calcium [Lipitor] 10 mg PO QAM 01/07/17 09/24/18 History QUEtiapine [SEROquel] 200 mg PO HS 01/07/17 09/24/18 History Omeprazole [PriLOSEC] 20 mg PO BID 02/01/18 09/24/18 History Bictegrav/Emtricit/Tenofov Ala 1 each PO DAILY 09/24/18 09/24/18 History [Biktarvy 50-200-25 mg Tablet] Ranitidine HCl [Zantac] 300 mg PO HS 09/24/18 09/24/18 History Sucralfate [Carafate] 2 gm PO BID 09/24/18 09/24/18 History Allergies Allergy/AdvReac Type Severity Reaction Status Date / Time No Known Allergies Allergy Verified 09/24/18 11:08 Surgical - Exam Vital Signs Pulse Resp BP Pulse Ox 60 18 118/65 98 09/27/18 07:16 09/27/18 07:16 09/27/18 07:16 09/27/18 07:16 Physical exam: General: Malnourished appearing HEENT: Normocephalic, sclerae nonicteric Abdomen: Nontender, nondistended Extremities: No edema Neuro: Alert and oriented Assessment and Plan (1) Esophageal stricture Narrative/Plan: Will proceed with esophageal dilation with EGD at this time. Risks of bleeding and perforation reviewed. He understands and wishes to proceed. Current Visit: No Status: Acute Code(s): K22.2 - ESOPHAGEAL OBSTRUCTION SNOMED Code(s): 90370453
--- NOTE | 2018-09-27 08:27 | P.PCN ---
Date of Procedure: 09/27/18 Procedure(s) Performed: Preoperative Dx: Esophageal stricture Postoperative Dx: Same Procedure: EGD with dilation to 15 mm Anesthesia: Sedation Endoscopist: Dr. Escobar Specimens: None Endoscopic Procedure: The patient was on the endoscopy table in the left decubitus position. The Olympus gastroscope was inserted into the oropharynx and passed under direct visualization to the distal esophagus. The patient's stricture was seen. A 12-15 mm balloon was utilized. The balloon was first inflated to 12 mm. Following that we were able to advance the scope through the stomach and the duodenum. The only abnormality identified was a small hiatal hernia. The balloon was then again utilized at the stricture site. This was inflated to 13.5 for 1 minute. Pressure was deflated. Pressure was then inflated to 15 mm. Pressure was again held for 1 minute. The remainder the esophagus appear normal. The patient was then taken to the recovery room in stable condition per anesthesia guidelines. Recommendations: Recommend repeat EGD 3 months. Resume diet.
[2018-09-27 08:59] VITALS: BP 101/64; PULSE 58
== END 2018-09-27 09:41 | disposition home or self-care (01) ==
LOC: ORWHC2ENDO 07:04
PROVIDERS: ATTEND Surgery
DX: K22.2 Esophageal obstruction (principal); K44.9 Diaphragmatic hernia without obstruction or gangrene; K21.9 Gastro-esophageal reflux disease without esophagitis; B20 Human immunodeficiency virus [HIV] disease; E78.5 Hyperlipidemia, unspecified; I10 Essential (primary) hypertension; G47.33 Obstructive sleep apnea (adult) (pediatric); Z99.89 Dependence on other enabling machines and devices; K82.8 Other specified diseases of gallbladder; C46.9 Kaposi's sarcoma, unspecified; G24.01 Drug induced subacute dyskinesia; Z97.2 Presence of dental prosthetic device (complete) (partial); Z82.69 Family history of other diseases of the musculoskeletal system and connective tissue; Z82.49 Family history of ischemic heart disease and other diseases of the circulatory system; Z79.82 Long term (current) use of aspirin; Z79.899 Other long term (current) drug therapy
CPT/HCPCS: 43249; J2001; J2704; C1726

== ENCOUNTER → 2019-08-09 | Day surgery (SDC) | payer MEDICARE ==
[2019-08-05 14:34] VITALS: BMI 20.3
[~2019-08-09] MED LIST changes: +GLYCOPYRROLATE 0.2 MG/ML 2 ML VIAL ONE; +LIDOCAINE 1% (10MG/ML) FOR IV START INTRADERMA PRN; -LIDOCAINE 1% 20 ML VIAL (10MG/ML) FOR IV START INTRADERMA PRN; +LIDOCAINE 1% INJ 10MG/ML (20 ML MDV) ONE; +MIDAZOLAM 2 MG/2 ML VIAL ONE; +PROPOFOL 10 MG/ML 20 ML VIAL IV ONE; +fentaNYL (PF) 50 MCG/ML 2 ML AMP ONE
[2019-08-09 09:47] VITALS: TEMP 97.5
--- NOTE | 2019-08-09 10:13 | P.HPADDEND ---
H&P Addendum H&P Addendum Date: 08/09/19 Physical exam: General: Well-developed, somewhat malnourished appearing HEENT: Normocephalic, sclerae nonicteric Abdomen: Nontender, nondistended Extremities: No edema Neuro: Alert and oriented
--- NOTE | 2019-08-09 10:54 | P.PCN ---
Date of Procedure: 08/09/19 Procedure(s) Performed: PREOPERATIVE DIAGNOSIS: GERD, colitis, change in bowel habits POSTOPERATIVE DIAGNOSIS: Anastomotic stricture, mild esophagitis, diverticulosis PROCEDURE: 1. EGD with biopsy 2. Colonoscopy with random biopsy ANESTHESIA: MAC SURGEON: Yahir Escobar M.D. SPECIMENS: Random colon ENDOSCOPIC PROCEDURE: The patient was on the endoscopy table in the left decubitus position. The Olympus gastroscope was inserted into the oropharynx and passed under direct visualization to the region of the third portion of the duodenum. From that point the scope was slowly withdrawn inspecting all surfaces carefully. There were no neoplastic inflammatory or polypoid lesions throughout the duodenum. The pylorus was widely patent. The stomach was carefully inspected. There no appreciable gastritis present. Retroflexion revealed a narrowed proximal stomach from recent surgery. At the gastro- esophageal anastomosis there was a stricture present with mild inflammation. Our scope was able to pass through this without significant difficulty however. There was mild esophagitis present proximal to the anastomosis. The patient was kept on the endoscopy table in the left decubitus position. The Olympus colonoscope was inserted into the anus and passed under direct visualization to the base of the cecum. The appendiceal orifice was visualized. From that point the scope was slowly withdrawn inspecting all surfaces carefully. There were no neoplastic inflammatory or polypoid lesions throughout the cecum, ascending, transverse, descending, sigmoid and rectum. Random biopsies of the colon took place to evaluate for microscopic colitis. Cultures were obtained as well. There was mild left-sided diverticulosis noted. Digital rectal examination was normal. The patient was taken to the recovery room in stable condition per anesthesia guidelines. RECOMMENDATIONS: Await biopsy and culture results.
[2019-08-09 11:15] VITALS: BP 89/54; PULSE 48; RESP 16
== END ==
LOC: ORWHC2ENDO 09:24
PROVIDERS: ATTEND Surgery
DX: K91.89 Other postprocedural complications and disorders of digestive system (principal); K21.0 Gastro-esophageal reflux disease with esophagitis; K57.30 Diverticulosis of large intestine without perforation or abscess without bleeding; B20 Human immunodeficiency virus [HIV] disease; K80.20 Calculus of gallbladder without cholecystitis without obstruction; I10 Essential (primary) hypertension; E78.5 Hyperlipidemia, unspecified; G47.33 Obstructive sleep apnea (adult) (pediatric); Z86.19 Personal history of other infectious and parasitic diseases; Z79.899 Other long term (current) drug therapy; Z79.82 Long term (current) use of aspirin; Z98.890 Other specified postprocedural states; Z97.2 Presence of dental prosthetic device (complete) (partial); Z95.2 Presence of prosthetic heart valve; Z86.73 Personal history of transient ischemic attack (TIA), and cerebral infarction without residual deficits; Z82.49 Family history of ischemic heart disease and other diseases of the circulatory system
CPT/HCPCS: 88305; 87324; 87045; 87046; 45380; 43235; J2250; J2001; J3010; J2704